=== PATIENT | male | born 1940 | race Caucasian/White ===

== ENCOUNTER → 2017-11-23 | Outpatient (CLI) | payer OTHER | LOC: M CARPUL 09:29 | DX: I51.7 Cardiomegaly (principal); R94.31 Abnormal electrocardiogram [ECG] [EKG] | CPT/HCPCS: 93306 ==

== ENCOUNTER 2020-05-15 16:17 | Emergency (ER) | payer OTHER ==
[~2020-05-15] VITALS: Ht 167.6 cm; Wt 100.5 kg
[2020-05-15] MEDS ORDERED: LANTINJ4 SC (16:36)
[2020-05-15] MEDS ORDERED: OMEP40CA97 PO (16:36)
[2020-05-15] MEDS ORDERED: CARV25TA PO (16:36)
[2020-05-15] MEDS ORDERED: TRUL0.5I SC (16:36)
[2020-05-15] MEDS ORDERED: INSU100V3 SQ (16:36)
[2020-05-15] MEDS ORDERED: ASPI81CH33 PO (16:36)
[2020-05-15] MEDS ORDERED: ATOR80TA59 PO (16:36)
[2020-05-15] MEDS ORDERED: METF-877 PO (16:36)
[2020-05-15] MEDS ORDERED: LIDOCAINE 4% CREAM 5GM (LMX4) TOP ONE (18:00)
--- NOTE | 2020-05-15 18:31 | REPVR ---
PROCEDURE INFORMATION: Exam: XR Left Hip with Pelvis when Performed Exam date and time: 05/15/2020 5:54 PM Age: 79 years old Clinical indication: Hip pain; Left hip; Additional info: Hurts to wb left leg TECHNIQUE: Imaging protocol: XR Left hip with pelvis when performed. Views: 2 or 3 views. COMPARISON: No relevant prior studies available. FINDINGS: Bones/joints: Bones are aligned normally. No acute proximal femur or acetabular fracture. Questionable left parasymphyseal obturator ring deformity No concerning bone lesion. No evidence of femoral head osteonecrosis. Hip joint space is well-maintained for age. Imaged portion of the SI joint is unremarkable. Soft tissues: No focal soft tissue abnormality. Vasculature: Vascular calcifications are noted. IMPRESSION: Questionable left parasymphyseal obturator ring fracture, nondisplaced. No other concerning abnormality to explain clinical symptoms. Electronically signed by: Edis Johnson On 05/15/2020 18:31:21 PM
--- NOTE | 2020-05-15 18:32 | REPVR ---
PROCEDURE INFORMATION: Exam: XR Left Tibia and Fibula Exam date and time: 05/15/2020 5:54 PM Age: 79 years old Clinical indication: Pain; Lower leg; Left; Additional info: Hurts to wb left leg TECHNIQUE: Imaging protocol: XR Left tibia and fibula. Views: 2 views. COMPARISON: No relevant prior studies available. FINDINGS: Bones/joints: Bony structures are aligned normally and demonstrate normal trabecular detail. No fracture or stress fracture. No concerning osseous lesion. Lag screw fixation of a prior distal fibular deformity, healed with no complication Mild ankle joint space narrowing and subchondral cystic change within the medial talus. Soft tissues: No focal soft tissue swelling or effacement of subcutaneous soft tissue planes. IMPRESSION: 1. Asymmetric medial ankle joint degenerative osteoarthrosis 2. No evidence of stress fracture Electronically signed by: Edis Johnson On 05/15/2020 18:32:25 PM
--- NOTE | 2020-05-15 18:33 | REPVR ---
PROCEDURE INFORMATION: Exam: US Duplex Left Lower Extremity Veins, Limited Exam date and time: 05/15/2020 6:20 PM Age: 79 years old Clinical indication: Pain; Leg, lower; Left; Additional info: Left calf pain, hurts to wb TECHNIQUE: Imaging protocol: Real-time Duplex ultrasound of the Left Lower Extremity with 2-D marin scale, color Doppler flow and spectral waveform analysis with image documentation. Limited exam focused on the left lower extremity veins. COMPARISON: No relevant prior studies available. FINDINGS: Left deep veins: Common femoral, femoral, proximal profunda femoral and popliteal veins are patent without thrombus. Normal Doppler waveforms. Normal compressibility and/or augmentation response. Left superficial veins: Saphenofemoral junction is patent without thrombus. Soft tissues: Unremarkable. IMPRESSION: No evidence of deep vein thrombosis. Electronically signed by: Edis Johnson On 05/15/2020 18:33:04 PM
[2020-05-15] MEDS ORDERED: ROLLMIS8 XX ×2 (19:34→19:35)
[2020-05-15 19:39] VITALS: BP 138/60
== END 2020-05-15 19:49 | disposition home or self-care (01) ==
LOC: M ED 16:17
DX: S72.002A Fracture of unspecified part of neck of left femur, initial encounter for closed fracture (principal); J44.9 Chronic obstructive pulmonary disease, unspecified; M19.072 Primary osteoarthritis, left ankle and foot; N18.3 Chronic kidney disease, stage 3 (moderate); I10 Essential (primary) hypertension; E11.9 Type 2 diabetes mellitus without complications; E78.5 Hyperlipidemia, unspecified; Z79.4 Long term (current) use of insulin; Z79.82 Long term (current) use of aspirin; Z79.899 Other long term (current) drug therapy; Z87.891 Personal history of nicotine dependence; Y92.9 Unspecified place or not applicable; Y93.9 Activity, unspecified; Y99.9 Unspecified external cause status

== ENCOUNTER 2020-11-18 11:59 | Emergency (ER) | payer OTHER ==
[~2020-11-18] VITALS: Ht 76.2 cm; Wt 104.1 kg
[~2020-11-18 11:59] MED LIST: ASPI81CH33 PO; ATOR80TA59 PO; CARV25TA PO; INSU100V3 SQ; LANTINJ4 SC; METF-877 PO; OMEP40CA97 PO; ROLLMIS8 XX; TRUL0.5I SC
--- NOTE | 2020-11-18 13:19 | REP ---
INDICATION: trauma COMPARISON: None. TECHNIQUE: Axial noncontrast images from the skull base to the thoracic inlet with coronal reformations. This CT examination was performed using the following dose reduction techniques: Automated exposure control, adjustment of mA and/or kv according to the patient's size, and use of iterative reconstruction technique. FINDINGS: Age-related atrophy and microvascular ischemic changes with periventricular leukomalacia and small chronic lacunar infarcts are appreciated. The ventricles and sulci are symmetric. Bauman-white differentiation is maintained. There is no evidence for acute intracranial hemorrhage, mass/mass effect, pathology or infarction. No extra-axial fluid collection. Calvarium is intact. Paranasal sinuses and mastoid air cells are clear. IMPRESSION: Age related atrophy and microvascular ischemic changes. No acute intracranial hemorrhage, infarction, or mass/mass effect. <Electronically signed by Darci Brambila > 11/18/20 [id number]
--- NOTE | 2020-11-18 13:20 | REP ---
INDICATION: trauma COMPARISON: None. TECHNIQUE: Axial noncontrast images from the skull base to the thoracic inlet with coronal and sagittal re-formations This CT examination was performed using the following dose reduction techniques: Automated exposure control, adjustment of mA and/or kv according to the patient's size, and use of iterative reconstruction technique. FINDINGS: Alignment and lordosis maintained. Early advanced multilevel degenerative changes include endplate sclerosis, disc space narrowing, osteophytosis and facet hypertrophy. No acute fracture/compression injury or subluxation. Spinal canal is patent. Paravertebral soft tissues are age-appropriate. IMPRESSION: Advanced multilevel degenerative spondylosis. No evidence for acute pathology or trauma/injury. <Electronically signed by Darci Brambila > 11/18/20 [id number]
[2020-11-18 13:24] LABS: BASO % 0.9 % (0.0-1.0); EOS # 0.1 10^3/uL (0.0-0.5); EOS % 2.3 % (0.0-3.0); HEMATOCRIT 41.5 % (42.0-52.0); HEMOGLOBIN 13.1 g/dl (13.5-17.5); LYMPH # 1.3 10^3/uL (1.5-5.0); LYMPH % 27.9 % (24.0-44.0); MEAN CORPUSCULAR HEMOGLOBIN 29.5 pg (27.0-33.0); MEAN CORPUSCULAR HGB CONC 31.6 g/dl (32.0-36.5); MEAN CORPUSCULAR VOLUME 93.5 fl (80.0-96.0); MONO # 0.6 10^3/uL (0.0-0.8); MONO % 11.9 % (2.0-8.0); NEUTROPHILS # 2.7 10^3/uL (1.5-8.5); NEUTROPHILS % 56.6 % (36.0-66.0); PLATELET COUNT, AUTOMATED 197 10^3/uL (150-450); RED BLOOD COUNT 4.44 10^6/uL (4.30-6.10); WHITE BLOOD COUNT 4.7 10^3/uL (4.0-10.0)
[2020-11-18 13:34] LABS: INR 1.01; PROTHROMBIN TIME 13.5 SECONDS (12.5-14.3)
[2020-11-18 13:35] LABS: PARTIAL THROMBOPLASTIN TIME 28.6 SECONDS (24.2-38.5)
[2020-11-18 14:02] LABS: ALBUMIN 2.8 GM/DL (3.2-5.2); ALT/SGPT 64 U/L (12-78); BILIRUBIN,DIRECT 0.2 MG/DL (0.0-0.2); BILIRUBIN,TOTAL 0.5 MG/DL (0.2-1.0); BLOOD UREA NITROGEN 29 MG/DL (7-18); CALCIUM LEVEL 9.4 MG/DL (8.8-10.2); CARBON DIOXIDE LEVEL 28 MEQ/L (21-32); CHLORIDE LEVEL 103 MEQ/L (98-107); CK-MB VALUE MASS 1.8 NG/ML (<3.6); CPK CREATINE PHOSPHOKINASE 29 U/L (39-308); CREATININE FOR GFR 1.58 MG/DL (0.70-1.30); FREE T4 1.06 NG/DL (0.76-1.46); GLOMERULAR FILTRATION RATE 45.4 (>42); GLUCOSE, FASTING 296 MG/DL (70-100); MB/CK RELATIVE INDEX 6.21 (< OR =4); POTASSIUM SERUM 4.6 MEQ/L (3.5-5.1); SODIUM LEVEL 136 MEQ/L (136-145); TROPONIN I < 0.02 NG/ML (< 0.10)
--- NOTE | 2020-11-18 15:00 | REP ---
INDICATION: trauma COMPARISON: 11/18/2013 TECHNIQUE: Portable AP view of the chest FINDINGS: The mediastinum and cardiac silhouette are stable and within normal limits for portable technique. The lung phelan are clear without acute consolidation, effusion, or pneumothorax. Skeletal structures are intact. IMPRESSION: No acute cardiopulmonary process appreciated. <Electronically signed by Darci Brambila > 11/18/20 [id number]
--- NOTE | 2020-11-18 15:02 | REP ---
INDICATION: trauma COMPARISON: None. TECHNIQUE: AP and lateral views of the left tibia/fibula. FINDINGS: Diffuse age-related changes are appreciated along with evidence for prior distal fibular fracture/fixation. No obvious acute fracture or dislocation. IMPRESSION: . No acute fracture or dislocation. <Electronically signed by Darci Brambila > 11/18/20 [id number]
--- NOTE | 2020-11-18 15:05 | REP ---
INDICATION: trauma COMPARISON: None. TECHNIQUE: Frontal view of the pelvis with neutral and frog lateral views of the left hip. FINDINGS: Diffuse age-related degenerative changes through the pelvis and hips noted. Peripheral vascular disease noted. There is no evidence for acute pelvic or left hip fracture. No subcutaneous emphysema or foreign body. IMPRESSION: Degenerative changes to the pelvis and hips (left greater than right). No evidence for acute fracture. INDICATION: trauma COMPARISON: None. TECHNIQUE: AP, lateral, bilateral oblique views of the left foot FINDINGS: Age-related osteopenia and generalized arthritic changes are appreciated. No obvious acute fracture or dislocation identified. Evidence for prior orthopedic fixation involving the distal fibular shaft noted. No subcutaneous emphysema or foreign body. IMPRESSION: Age-related osteopenia and generalized arthritic degenerative changes. No acute fracture or dislocation. <Electronically signed by Darci Brambila > 11/18/20 [id number]
[2020-11-18 16:15] VITALS: BP 182/75
--- NOTE | 2020-11-18 19:39 | ECGEPIP ---
[facility] - ED Test Date: 2020-11-18 Pat Name: AARON BERGER Department: Room: - Gender: Male [employer]ist: CED : 1940 Requested By: ALVIN Campbell Order Number: [id number] Reading MD: Efrain Soni Measurements Intervals [place] Rate: 84 P: 66 NV: 152 QRS: 47 QRSD: 82 T: 60 QT: 382 QTc: 451 Interpretive Statements Normal sinus rhythm Nonspecific ST and T wave abnormality Delayed R wave progression No prior ECG for comparison Electronically Signed on 11-18-2020 19:39:50 EST by Efrain Soni
== END 2020-11-18 16:15 | disposition home or self-care (01) ==
LOC: EDBD 11:59 → M ED 11:59
DX: S79.912A Unspecified injury of left hip, initial encounter (principal); W00.0XXA Fall on same level due to ice and snow, initial encounter; Y92.89 Other specified places as the place of occurrence of the external cause; E11.9 Type 2 diabetes mellitus without complications; J44.9 Chronic obstructive pulmonary disease, unspecified; N18.30 Chronic kidney disease, stage 3 unspecified; D64.9 Anemia, unspecified; G62.9 Polyneuropathy, unspecified; Z79.899 Other long term (current) drug therapy; Z79.82 Long term (current) use of aspirin; Z79.4 Long term (current) use of insulin

== ENCOUNTER 2021-09-11 15:32 | Emergency (ER) | payer OTHER ==
[~2021-09-11] VITALS: Ht 167.6 cm; Wt 100.0 kg
[~2021-09-11 15:32] MED LIST changes: +OMEP40CA4 PO; -OMEP40CA97 PO
[2021-09-11 21:26] LABS: BASO % 0.7 % (0.0-1.0); EOS # 0.2 10^3/uL (0.0-0.5); EOS % 3.9 % (0.0-3.0); HEMATOCRIT 39.7 % (42.0-52.0); HEMOGLOBIN 12.4 g/dl (13.5-17.5); LYMPH % 35.6 % (24.0-44.0); MEAN CORPUSCULAR HEMOGLOBIN 30.1 pg (27.0-33.0); MEAN CORPUSCULAR HGB CONC 31.2 g/dl (32.0-36.5); MEAN CORPUSCULAR VOLUME 96.4 fl (80.0-96.0); MONO # 0.7 10^3/uL (0.0-0.8); MONO % 12.1 % (2.0-8.0); NEUTROPHILS # 2.7 10^3/uL (1.5-8.5); NEUTROPHILS % 47.5 % (36.0-66.0); PLATELET COUNT, AUTOMATED 169 10^3/uL (150-450); RED BLOOD COUNT 4.12 10^6/uL (4.30-6.10); WHITE BLOOD COUNT 5.7 10^3/uL (4.0-10.0)
--- NOTE | 2021-09-11 21:32 | REPVR ---
PROCEDURE INFORMATION: Exam: US Duplex Right Lower Extremity Veins, Limited Exam date and time: 09/11/2021 9:17 PM Age: 81 years old Clinical indication: Edema, localized; Lower extremity, right; Additional info: Rle edema TECHNIQUE: Imaging protocol: Real-time Duplex ultrasound of the Right Lower Extremity with 2-D marin scale, color Doppler flow and spectral waveform analysis with image documentation. Limited exam was focused on the right lower extremity veins. COMPARISON: CR Tibia, Fibula lower leg 11/18/2020 2:26 PM FINDINGS: Right deep veins: Unremarkable. The common femoral, femoral, proximal profunda femoral and popliteal veins are patent without thrombus. Normal Doppler waveforms. Normal compressibility and/or augmentation response. Right superficial veins: Unremarkable. Saphenofemoral junction is patent without thrombus. Soft tissues: Soft tissue swelling IMPRESSION: No evidence of deep vein thrombosis. Electronically signed by: Avtar Ramírez On 09/11/2021 21:32:20 PM
[2021-09-11 21:46] LABS: ERYTHROCYTE SEDIMENTATION RATE 61 mm/hr (0-20)
[2021-09-11 22:00] LABS: ALBUMIN 3.2 GM/DL (3.2-5.2); BILIRUBIN,DIRECT 0.2 MG/DL (0.0-0.2); BILIRUBIN,TOTAL 0.5 MG/DL (0.2-1.0); C REACTIVE PROTEIN QUANTITATIV 0.47 MG/DL (0.00-0.30); CALCIUM LEVEL 9.2 MG/DL (8.8-10.2); CREATININE FOR GFR 1.69 MG/DL (0.70-1.30); GLOMERULAR FILTRATION RATE 41.9 (>42); POTASSIUM SERUM 4.6 MEQ/L (3.5-5.1); TOTAL PROTEIN 7.2 GM/DL (6.4-8.2)
[2021-09-11] MEDS ORDERED: TINA1CRE TOP (22:14)
[2021-09-11 22:28] VITALS: BP 120/58
== END 2021-09-11 23:01 | disposition home or self-care (01) ==
LOC: M ED 15:32
DX: B35.3 Tinea pedis (principal); R60.0 Localized edema; J44.9 Chronic obstructive pulmonary disease, unspecified; K21.9 Gastro-esophageal reflux disease without esophagitis; N18.30 Chronic kidney disease, stage 3 unspecified; Z79.82 Long term (current) use of aspirin; Z79.4 Long term (current) use of insulin; Z79.899 Other long term (current) drug therapy

== ENCOUNTER 2022-02-19 12:20 | Inpatient (IN) | payer OTHER, MEDICARE ==
[~2022-02-19] VITALS: Ht 167.6 cm; Wt 91.3 kg
[~2022-02-19 12:20] MED LIST changes: +TINA1CRE TOP
[2022-02-19 14:00] LABS: BASO % 0.5 % (0.0-1.0); EOS # 0.5 10^3/uL (0.0-0.5); EOS % 8.2 % (0.0-3.0); HEMATOCRIT 35.1 % (42.0-52.0); HEMOGLOBIN 11.1 g/dl (13.5-17.5); LYMPH # 1.5 10^3/uL (1.5-5.0); LYMPH % 24.7 % (24.0-44.0); MEAN CORPUSCULAR HEMOGLOBIN 29.5 pg (27.0-33.0); MEAN CORPUSCULAR HGB CONC 31.6 g/dl (32.0-36.5); MEAN CORPUSCULAR VOLUME 93.4 fl (80.0-96.0); MONO # 0.7 10^3/uL (0.0-0.8); MONO % 12.4 % (2.0-8.0); NEUTROPHILS # 3.2 10^3/uL (1.5-8.5); NEUTROPHILS % 53.9 % (36.0-66.0); PLATELET COUNT, AUTOMATED 196 10^3/uL (150-450); RED BLOOD COUNT 3.76 10^6/uL (4.30-6.10); WHITE BLOOD COUNT 5.9 10^3/uL (4.0-10.0)
[2022-02-19] MEDS ORDERED: diphenhydrAMINE 50MG/ML VIAL (J1200) IV ONE (14:00)
[2022-02-19 14:32] LABS: ALBUMIN 2.2 GM/DL (3.2-5.2); BILIRUBIN,DIRECT 0.3 MG/DL (0.0-0.2); BILIRUBIN,TOTAL 0.5 MG/DL (0.2-1.0); C REACTIVE PROTEIN QUANTITATIV 3.85 MG/DL (0.00-0.30); CALCIUM LEVEL 9.1 MG/DL (8.8-10.2); CREATININE FOR GFR 1.68 MG/DL (0.70-1.30); GLOMERULAR FILTRATION RATE 42.2 (>42); TOTAL PROTEIN 6.3 GM/DL (6.4-8.2)
[2022-02-19 14:54] LABS: ERYTHROCYTE SEDIMENTATION RATE 87 mm/hr (0-20)
[2022-02-19] MEDS ORDERED: VANCOMYCIN HCL 1,500 MG in IV FLUID PLACE HOLDER 1 EA IV ONE (14:55)
[2022-02-19] MEDS ORDERED: VANCOMYCIN HCL 750 MG, VIAL MATE ADAPTER 1 EACH in NS 250 ML IV ONE ×6 (15:05)
[2022-02-19 15:10] LABS: INR 1.07; PROTHROMBIN TIME 14.3 SECONDS (12.7-14.5)
[2022-02-19 15:11] LABS: PARTIAL THROMBOPLASTIN TIME 34.5 SECONDS (25.9-37.0)
[2022-02-19] MEDS: NS 1,000 ML IV SCH (15:19)
[2022-02-19 15:45] LABS: D-DIMER QUANT > 4000 ng/ml (<500)
[2022-02-19 15:53] LABS: RSV AMPLIFICATION NEGATIVE (NEGATIVE)
[2022-02-19] MEDS ORDERED: ISOVUE-370 76% 100ML VIAL As Ordered ONE (16:42)
[2022-02-19] MEDS ORDERED: HOME MED LIST COMPLETE! XX SCH ×2 (17:10→18:55)
[2022-02-19] MEDS ORDERED: MAALOX 30 ML SUSP *UDC PO PRN (17:20)
[2022-02-19] MEDS ORDERED: VANCOMYCIN HCL 1,000 MG, VIAL MATE ADAPTER 1 EACH in NS 250 ML IV SCH (18:50)
[2022-02-19] MEDS ORDERED: GLUCOSE 4GM CHEW TABLET PO PRN (18:50)
[2022-02-19] MEDS ORDERED: DEXTROSE 50% 50 ML SYRINGE IV PRN (18:50)
[2022-02-19] MEDS ORDERED: GLUCAGON INJ 1MG VIAL SC PRN (18:50)
[2022-02-19 20:00] VITALS: BP 118/78
[2022-02-19] MEDS: cefTRIAXone SOD 1 GM in D5W MINI-BAG PLUS 50 ML IV SCH (20:14)
[2022-02-19] MEDS: INSULIN LISPRO (NovoLOG) PER UNIT SC SCH (22:46)
[2022-02-19] MEDS: HEPARIN SOD (PORCINE) 5000UNITS/ML 1ML VIAL/SYRINGE SC SCH (23:00)
[2022-02-19] MEDS: LEVEMIR (INSULIN DETEMIR) 1 UNITS/0.01ML SC SCH (23:01)
[2022-02-19] MEDS: CARVedilol 12.5 MG TAB PO SCH (23:05)
[2022-02-20] MEDS ORDERED: VANCOMYCIN HCL 750 MG, VIAL MATE ADAPTER 1 EACH in NS 250 ML IV SCH ×3
[2022-02-20] MEDS ORDERED: VANCOMYCIN HCL 500 MG in D5W MINI-BAG PLUS 100 ML IV SCH (01:00)
[2022-02-20 05:54] LABS: BASO % 0.5 % (0.0-1.0); EOS # 0.6 10^3/uL (0.0-0.5); EOS % 7.9 % (0.0-3.0); HEMATOCRIT 34.9 % (42.0-52.0); HEMOGLOBIN 11.3 g/dl (13.5-17.5); LYMPH # 1.7 10^3/uL (1.5-5.0); MEAN CORPUSCULAR HEMOGLOBIN 30.2 pg (27.0-33.0); MEAN CORPUSCULAR HGB CONC 32.4 g/dl (32.0-36.5); MEAN CORPUSCULAR VOLUME 93.3 fl (80.0-96.0); MONO # 0.9 10^3/uL (0.0-0.8); MONO % 11.8 % (2.0-8.0); NEUTROPHILS # 4.6 10^3/uL (1.5-8.5); NEUTROPHILS % 58.4 % (36.0-66.0); PLATELET COUNT, AUTOMATED 217 10^3/uL (150-450); RED BLOOD COUNT 3.74 10^6/uL (4.30-6.10); WHITE BLOOD COUNT 7.9 10^3/uL (4.0-10.0)
[2022-02-20 06:00] VITALS: BP 161/67
[2022-02-20 06:28] LABS: ALBUMIN 2.1 GM/DL (3.2-5.2); BILIRUBIN,TOTAL 0.3 MG/DL (0.2-1.0); C REACTIVE PROTEIN QUANTITATIV 3.8 MG/DL (0.00-0.30); CALCIUM LEVEL 8.5 MG/DL (8.8-10.2); CREATININE FOR GFR 1.58 MG/DL (0.70-1.30); GLOMERULAR FILTRATION RATE 45.3 (>42); MAGNESIUM LEVEL 2.1 MG/DL (1.8-2.4); TOTAL PROTEIN 7.1 GM/DL (6.4-8.2)
[2022-02-20] MEDS: NS 1,000 ML IV SCH (06:53)
[2022-02-20] MEDS: HEPARIN SOD (PORCINE) 5000UNITS/ML 1ML VIAL/SYRINGE SC SCH ×3 (06:55→22:08)
[2022-02-20 07:08] LABS: ERYTHROCYTE SEDIMENTATION RATE 94 mm/hr (0-20)
[2022-02-20] MEDS: INSULIN LISPRO (NovoLOG) PER UNIT SC SCH ×4 (07:14→21:00)
[2022-02-20] MEDS ORDERED: NS 1,000 ML IV SCH (07:30)
[2022-02-20] MEDS: ASPIRIN 81 MG CHEW TABLET PO SCH (07:56)
[2022-02-20] MEDS: OMEPRAZOLE 20MG CAP PO SCH (07:56)
[2022-02-20] MEDS: CARVedilol 12.5 MG TAB PO SCH ×2 (07:56→22:00)
[2022-02-20] MEDS: ATORVASTATIN 20 MG TAB PO SCH (07:56)
[2022-02-20] MEDS: amLODIPine 5 MG TAB PO SCH (08:26)
[2022-02-20] MEDS: CHLORTHALIDONE 12.5MG PER 1/2 TABLET PO SCH (08:55)
[2022-02-20 09:25] LABS: CK-MB VALUE MASS 1.5 NG/ML (<3.6); MB/CK RELATIVE INDEX 2.78 (< OR =4)
[2022-02-20] MEDS ORDERED: ISOVUE-370 76% 100ML VIAL As Ordered ONE (09:27)
[2022-02-20 11:45] VITALS: BP 152/76
[2022-02-20 12:02] LABS: CHOLESTEROL RISK RATIO 2.733 (<5)
[2022-02-20 12:56] LABS: FREE T4 1.13 NG/DL (0.76-1.46); THYROID STIMULATING HORMONE 0.974 uIU/ML (0.358-3.740)
[2022-02-20] MEDS: VANCOMYCIN HCL 1,000 MG, VIAL MATE ADAPTER 1 EACH in NS 250 ML IV SCH (14:48)
[2022-02-20] MEDS: D5W/0.45% SODIUM CHLORIDE 1,000 ML IV SCH (14:50)
[2022-02-20 20:00] VITALS: BP 187/93
[2022-02-20 22:00] VITALS: BP 182/70
[2022-02-20] MEDS: cefTRIAXone SOD 1 GM in D5W MINI-BAG PLUS 50 ML IV SCH (22:08)
[2022-02-20] MEDS ORDERED: amLODIPine 5 MG TAB PO ONE (22:25)
[2022-02-21] VITALS (9 sets, daily range): BP systolic 138–200; BP diastolic 68–80
[2022-02-21] MEDS ORDERED: hydrALAZINE 20MG/ML 1ML VIAL (J0360 PER 20MG) IV ONE (00:55)
[2022-02-21] MEDS ORDERED: CHLORTHALIDONE 12.5MG PER 1/2 TABLET PO ONE (02:40)
[2022-02-21] MEDS: ACETAMINOPHEN TAB 650MG DOSE (2X325MG) PO PRN ×2 (02:57→12:01)
[2022-02-21] MEDS ORDERED: cloNIDine 0.1MG TABLET PO ONE (04:55)
[2022-02-21] MEDS: HEPARIN SOD (PORCINE) 5000UNITS/ML 1ML VIAL/SYRINGE SC SCH ×3 (06:04→20:28)
[2022-02-21 07:39] LABS: BASO % 0.5 % (0.0-1.0); EOS # 0.5 10^3/uL (0.0-0.5); EOS % 8.7 % (0.0-3.0); HEMATOCRIT 31.8 % (42.0-52.0); HEMOGLOBIN 10.4 g/dl (13.5-17.5); LYMPH # 1.6 10^3/uL (1.5-5.0); LYMPH % 27.4 % (24.0-44.0); MEAN CORPUSCULAR HEMOGLOBIN 30.3 pg (27.0-33.0); MEAN CORPUSCULAR HGB CONC 32.7 g/dl (32.0-36.5); MEAN CORPUSCULAR VOLUME 92.7 fl (80.0-96.0); MONO # 0.8 10^3/uL (0.0-0.8); MONO % 13.9 % (2.0-8.0); NEUTROPHILS # 2.9 10^3/uL (1.5-8.5); NEUTROPHILS % 49.3 % (36.0-66.0); PLATELET COUNT, AUTOMATED 185 10^3/uL (150-450); RED BLOOD COUNT 3.43 10^6/uL (4.30-6.10); WHITE BLOOD COUNT 5.9 10^3/uL (4.0-10.0)
[2022-02-21 08:04] LABS: ALBUMIN 1.8 GM/DL (3.2-5.2); BILIRUBIN,TOTAL 0.2 MG/DL (0.2-1.0); C REACTIVE PROTEIN QUANTITATIV 2.67 MG/DL (0.00-0.30); CALCIUM LEVEL 8.2 MG/DL (8.8-10.2); CREATININE FOR GFR 1.49 MG/DL (0.70-1.30); GLOMERULAR FILTRATION RATE 48.4 (>42); MAGNESIUM LEVEL 1.9 MG/DL (1.8-2.4); POTASSIUM SERUM 4.1 MEQ/L (3.5-5.1)
[2022-02-21 08:09] LABS: ERYTHROCYTE SEDIMENTATION RATE 77 mm/hr (0-20)
[2022-02-21] MEDS: D5W/0.45% SODIUM CHLORIDE 1,000 ML IV SCH (08:12)
[2022-02-21] MEDS: CHLORTHALIDONE 12.5MG PER 1/2 TABLET PO SCH (08:56)
[2022-02-21] MEDS: INSULIN LISPRO (NovoLOG) PER UNIT SC SCH ×4 (08:56→20:28)
[2022-02-21] MEDS: OMEPRAZOLE 20MG CAP PO SCH (08:57)
[2022-02-21] MEDS: ASPIRIN 81 MG CHEW TABLET PO SCH (08:57)
[2022-02-21] MEDS: ATORVASTATIN 20 MG TAB PO SCH (08:57)
[2022-02-21] MEDS: amLODIPine 5 MG TAB PO SCH (08:57)
[2022-02-21] MEDS: CARVedilol 12.5 MG TAB PO SCH ×2 (08:58→20:29)
[2022-02-21] MEDS: LEVEMIR (INSULIN DETEMIR) 1 UNITS/0.01ML SC SCH ×2 (09:07→20:29)
[2022-02-21] MEDS: VANCOMYCIN HCL 1,000 MG, VIAL MATE ADAPTER 1 EACH in NS 250 ML IV SCH (14:00)
[2022-02-22] VITALS (7 sets, daily range): BP systolic 134–186; BP diastolic 42–73
[2022-02-22] MEDS: D5W/0.45% SODIUM CHLORIDE 1,000 ML IV SCH ×2 (00:45→14:37)
[2022-02-22] MEDS: HEPARIN SOD (PORCINE) 5000UNITS/ML 1ML VIAL/SYRINGE SC SCH ×3 (05:34→20:40)
[2022-02-22 07:11] LABS: BASO # 0.1 10^3/uL (0.0-0.2); BASO % 0.8 % (0.0-1.0); EOS # 0.6 10^3/uL (0.0-0.5); EOS % 8.9 % (0.0-3.0); HEMATOCRIT 33.1 % (42.0-52.0); HEMOGLOBIN 10.6 g/dl (13.5-17.5); LYMPH # 1.5 10^3/uL (1.5-5.0); LYMPH % 22.7 % (24.0-44.0); MEAN CORPUSCULAR HEMOGLOBIN 29.4 pg (27.0-33.0); MEAN CORPUSCULAR VOLUME 91.9 fl (80.0-96.0); MONO # 0.9 10^3/uL (0.0-0.8); MONO % 12.8 % (2.0-8.0); NEUTROPHILS # 3.6 10^3/uL (1.5-8.5); NEUTROPHILS % 54.6 % (36.0-66.0); PLATELET COUNT, AUTOMATED 204 10^3/uL (150-450); WHITE BLOOD COUNT 6.7 10^3/uL (4.0-10.0)
[2022-02-22] MEDS: INSULIN LISPRO (NovoLOG) PER UNIT SC SCH ×4 (07:30→20:31)
[2022-02-22 07:33] LABS: ERYTHROCYTE SEDIMENTATION RATE 85 mm/hr (0-20)
[2022-02-22 07:40] LABS: ALBUMIN 1.9 GM/DL (3.2-5.2); BILIRUBIN,TOTAL 0.2 MG/DL (0.2-1.0); C REACTIVE PROTEIN QUANTITATIV 2.17 MG/DL (0.00-0.30); CALCIUM LEVEL 8.7 MG/DL (8.8-10.2); CREATININE FOR GFR 1.43 MG/DL (0.70-1.30); GLOMERULAR FILTRATION RATE 50.8 (>42); MAGNESIUM LEVEL 2.2 MG/DL (1.8-2.4); POTASSIUM SERUM 3.9 MEQ/L (3.5-5.1); TOTAL PROTEIN 5.8 GM/DL (6.4-8.2)
[2022-02-22] MEDS: ATORVASTATIN 20 MG TAB PO SCH (09:07)
[2022-02-22] MEDS: OMEPRAZOLE 20MG CAP PO SCH (09:08)
[2022-02-22] MEDS: CHLORTHALIDONE 12.5MG PER 1/2 TABLET PO SCH (09:08)
[2022-02-22] MEDS: CARVedilol 12.5 MG TAB PO SCH ×2 (09:08→20:41)
[2022-02-22] MEDS: ASPIRIN 81 MG CHEW TABLET PO SCH (09:08)
[2022-02-22] MEDS: LEVEMIR (INSULIN DETEMIR) 1 UNITS/0.01ML SC SCH ×2 (09:09→20:40)
[2022-02-22] MEDS: amLODIPine 5 MG TAB PO SCH (09:09)
[2022-02-22] MEDS: ceFAZolin SOD 2 GM in IV 1 EA IV SCH ×2 (13:58→20:40)
[2022-02-22] MEDS ORDERED: hydrALAZINE 20MG/ML 1ML VIAL (J0360 PER 20MG) IV ONE (23:25)
[2022-02-23] VITALS (8 sets, daily range): BP systolic 130–175; BP diastolic 57–88
[2022-02-23] MEDS: HEPARIN SOD (PORCINE) 5000UNITS/ML 1ML VIAL/SYRINGE SC SCH ×3 (06:08→22:31)
[2022-02-23] MEDS: ceFAZolin SOD 2 GM in IV 1 EA IV SCH ×3 (06:09→22:29)
[2022-02-23 06:12] LABS: BASO % 0.6 % (0.0-1.0); EOS # 0.5 10^3/uL (0.0-0.5); EOS % 7.8 % (0.0-3.0); HEMOGLOBIN 11.2 g/dl (13.5-17.5); LYMPH # 1.8 10^3/uL (1.5-5.0); LYMPH % 28.1 % (24.0-44.0); MEAN CORPUSCULAR HEMOGLOBIN 29.5 pg (27.0-33.0); MEAN CORPUSCULAR VOLUME 92.1 fl (80.0-96.0); MONO # 0.8 10^3/uL (0.0-0.8); MONO % 12.8 % (2.0-8.0); NEUTROPHILS # 3.2 10^3/uL (1.5-8.5); NEUTROPHILS % 50.4 % (36.0-66.0); PLATELET COUNT, AUTOMATED 189 10^3/uL (150-450); WHITE BLOOD COUNT 6.3 10^3/uL (4.0-10.0)
[2022-02-23 06:39] LABS: ALBUMIN 1.9 GM/DL (3.2-5.2); BILIRUBIN,TOTAL 0.2 MG/DL (0.2-1.0); C REACTIVE PROTEIN QUANTITATIV 1.7 MG/DL (0.00-0.30); CREATININE FOR GFR 1.56 MG/DL (0.70-1.30); GLOMERULAR FILTRATION RATE 45.9 (>42); POTASSIUM SERUM 4.2 MEQ/L (3.5-5.1); TOTAL PROTEIN 6.9 GM/DL (6.4-8.2)
[2022-02-23 06:46] LABS: ERYTHROCYTE SEDIMENTATION RATE 86 mm/hr (0-20)
[2022-02-23] MEDS: D5W/0.45% SODIUM CHLORIDE 1,000 ML IV SCH (06:55)
[2022-02-23] MEDS: INSULIN LISPRO (NovoLOG) PER UNIT SC SCH ×4 (07:29→21:00)
[2022-02-23] MEDS: CHLORTHALIDONE 12.5MG PER 1/2 TABLET PO SCH (08:28)
[2022-02-23] MEDS: LEVEMIR (INSULIN DETEMIR) 1 UNITS/0.01ML SC SCH ×2 (08:28→21:00)
[2022-02-23] MEDS: amLODIPine 5 MG TAB PO SCH (08:28)
[2022-02-23] MEDS: ATORVASTATIN 20 MG TAB PO SCH (08:28)
[2022-02-23] MEDS: ASPIRIN 81 MG CHEW TABLET PO SCH (08:29)
[2022-02-23] MEDS: CARVedilol 12.5 MG TAB PO SCH ×2 (08:29→22:29)
[2022-02-23] MEDS: OMEPRAZOLE 20MG CAP PO SCH (08:29)
[2022-02-23] MEDS: LOSARTAN 50MG TABLET PO SCH (16:06)
[2022-02-23] MEDS: traMADol 50 MG TAB PO PRN (22:30)
[2022-02-24 05:40] LABS: BASO % 0.6 % (0.0-1.0); EOS # 0.5 10^3/uL (0.0-0.5); EOS % 7.9 % (0.0-3.0); HEMATOCRIT 36.3 % (42.0-52.0); HEMOGLOBIN 11.5 g/dl (13.5-17.5); LYMPH % 31.8 % (24.0-44.0); MEAN CORPUSCULAR HEMOGLOBIN 29.4 pg (27.0-33.0); MEAN CORPUSCULAR HGB CONC 31.7 g/dl (32.0-36.5); MEAN CORPUSCULAR VOLUME 92.8 fl (80.0-96.0); MONO # 0.9 10^3/uL (0.0-0.8); MONO % 14.4 % (2.0-8.0); NEUTROPHILS # 2.8 10^3/uL (1.5-8.5); NEUTROPHILS % 45.1 % (36.0-66.0); PLATELET COUNT, AUTOMATED 194 10^3/uL (150-450); RED BLOOD COUNT 3.91 10^6/uL (4.30-6.10); WHITE BLOOD COUNT 6.2 10^3/uL (4.0-10.0)
[2022-02-24] MEDS: ceFAZolin SOD 2 GM in IV 1 EA IV SCH ×3 (05:41→21:00)
[2022-02-24] MEDS: HEPARIN SOD (PORCINE) 5000UNITS/ML 1ML VIAL/SYRINGE SC SCH ×3 (05:42→22:00)
[2022-02-24 06:00] VITALS: BP 180/68
[2022-02-24 06:36] LABS: BILIRUBIN,TOTAL 0.2 MG/DL (0.2-1.0); CALCIUM LEVEL 8.9 MG/DL (8.8-10.2); CREATININE FOR GFR 1.6 MG/DL (0.70-1.30); GLOMERULAR FILTRATION RATE 44.6 (>42); MAGNESIUM LEVEL 2.2 MG/DL (1.8-2.4); POTASSIUM SERUM 4.3 MEQ/L (3.5-5.1); TOTAL PROTEIN 6.3 GM/DL (6.4-8.2)
[2022-02-24] MEDS ORDERED: hydrALAZINE 20MG/ML 1ML VIAL (J0360 PER 20MG) IV STA (07:14)
[2022-02-24] MEDS: INSULIN LISPRO (NovoLOG) PER UNIT SC SCH ×4 (07:30→21:00)
[2022-02-24 08:00] VITALS: BP 160/78
[2022-02-24] MEDS: ASPIRIN 81 MG CHEW TABLET PO SCH (08:05)
[2022-02-24] MEDS: CHLORTHALIDONE 12.5MG PER 1/2 TABLET PO SCH (08:05)
[2022-02-24] MEDS: ATORVASTATIN 20 MG TAB PO SCH (08:05)
[2022-02-24] MEDS: CARVedilol 12.5 MG TAB PO SCH ×2 (08:06→22:16)
[2022-02-24] MEDS: LOSARTAN 50MG TABLET PO SCH (08:06)
[2022-02-24] MEDS: OMEPRAZOLE 20MG CAP PO SCH (08:06)
[2022-02-24] MEDS: amLODIPine 5 MG TAB PO SCH (08:07)
[2022-02-24] MEDS: LEVEMIR (INSULIN DETEMIR) 1 UNITS/0.01ML SC SCH ×2 (08:08→22:17)
[2022-02-24 08:53] VITALS: BP 120/64
[2022-02-24 09:15] VITALS: BP 104/78
[2022-02-24 14:00] VITALS: BP 146/66
[2022-02-24 17:21] LABS: HEMATOCRIT 34.8 % (42.0-52.0); HEMOGLOBIN 11.2 g/dl (13.5-17.5)
[2022-02-24 22:05] VITALS: BP 154/60
[2022-02-25] MEDS: ceFAZolin SOD 2 GM in IV 1 EA IV SCH (04:07)
[2022-02-25] MEDS: HEPARIN SOD (PORCINE) 5000UNITS/ML 1ML VIAL/SYRINGE SC SCH (04:07)
[2022-02-25 05:15] VITALS: BP 168/59
[2022-02-25 06:02] LABS: BASO % 0.7 % (0.0-1.0); EOS # 0.5 10^3/uL (0.0-0.5); EOS % 9.3 % (0.0-3.0); HEMOGLOBIN 11.4 g/dl (13.5-17.5); LYMPH # 1.7 10^3/uL (1.5-5.0); LYMPH % 30.8 % (24.0-44.0); MEAN CORPUSCULAR HEMOGLOBIN 29.2 pg (27.0-33.0); MEAN CORPUSCULAR HGB CONC 31.7 g/dl (32.0-36.5); MEAN CORPUSCULAR VOLUME 92.3 fl (80.0-96.0); MONO # 0.7 10^3/uL (0.0-0.8); MONO % 13.2 % (2.0-8.0); NEUTROPHILS # 2.6 10^3/uL (1.5-8.5); NEUTROPHILS % 45.8 % (36.0-66.0); PLATELET COUNT, AUTOMATED 203 10^3/uL (150-450); WHITE BLOOD COUNT 5.6 10^3/uL (4.0-10.0)
[2022-02-25 06:34] LABS: BILIRUBIN,TOTAL 0.3 MG/DL (0.2-1.0); CALCIUM LEVEL 9.1 MG/DL (8.8-10.2); CREATININE FOR GFR 1.54 MG/DL (0.70-1.30); GLOMERULAR FILTRATION RATE 46.6 (>42); MAGNESIUM LEVEL 2.2 MG/DL (1.8-2.4); POTASSIUM SERUM 4.4 MEQ/L (3.5-5.1); TOTAL PROTEIN 6.1 GM/DL (6.4-8.2)
[2022-02-25] MEDS: INSULIN LISPRO (NovoLOG) PER UNIT SC SCH ×4 (07:30→21:00)
[2022-02-25 09:00] VITALS: BP 106/47
[2022-02-25] MEDS: OMEPRAZOLE 20MG CAP PO SCH (09:04)
[2022-02-25] MEDS: CHLORTHALIDONE 12.5MG PER 1/2 TABLET PO SCH (09:04)
[2022-02-25] MEDS: LOSARTAN 50MG TABLET PO SCH (09:04)
[2022-02-25] MEDS: ATORVASTATIN 20 MG TAB PO SCH (09:04)
[2022-02-25] MEDS: CARVedilol 12.5 MG TAB PO SCH ×2 (09:07→20:47)
[2022-02-25] MEDS: amLODIPine 5 MG TAB PO SCH (09:07)
[2022-02-25 14:40] VITALS: BP 123/60
[2022-02-25 14:49] VITALS: BP 123/60
[2022-02-25] MEDS: CEPHALEXIN 500 MG CAP PO SCH ×2 (16:10→20:39)
[2022-02-25 20:00] VITALS: BP 131/61
[2022-02-25] MEDS: DIMETHICONE 2% OINTMENT(VANICREAM) 70GM TUBE TOP SCH (21:57)
[2022-02-26 06:00] VITALS: BP 154/63
[2022-02-26 06:04] LABS: BASO % 0.6 % (0.0-1.0); EOS # 0.5 10^3/uL (0.0-0.5); EOS % 7.5 % (0.0-3.0); HEMOGLOBIN 11.7 g/dl (13.5-17.5); LYMPH # 1.7 10^3/uL (1.5-5.0); LYMPH % 27.4 % (24.0-44.0); MEAN CORPUSCULAR HEMOGLOBIN 29.3 pg (27.0-33.0); MEAN CORPUSCULAR HGB CONC 31.6 g/dl (32.0-36.5); MEAN CORPUSCULAR VOLUME 92.5 fl (80.0-96.0); MONO # 0.8 10^3/uL (0.0-0.8); MONO % 12.5 % (2.0-8.0); NEUTROPHILS # 3.2 10^3/uL (1.5-8.5); NEUTROPHILS % 51.8 % (36.0-66.0); PLATELET COUNT, AUTOMATED 195 10^3/uL (150-450); WHITE BLOOD COUNT 6.2 10^3/uL (4.0-10.0)
[2022-02-26 06:32] LABS: ALBUMIN 2.2 GM/DL (3.2-5.2); BILIRUBIN,TOTAL 0.3 MG/DL (0.2-1.0); CALCIUM LEVEL 9.2 MG/DL (8.8-10.2); CREATININE FOR GFR 1.48 MG/DL (0.70-1.30); GLOMERULAR FILTRATION RATE 48.8 (>42); MAGNESIUM LEVEL 2.4 MG/DL (1.8-2.4); POTASSIUM SERUM 4.6 MEQ/L (3.5-5.1); TOTAL PROTEIN 6.4 GM/DL (6.4-8.2)
[2022-02-26] MEDS: INSULIN LISPRO (NovoLOG) PER UNIT SC SCH ×4 (07:53→20:51)
[2022-02-26] MEDS: LEVEMIR (INSULIN DETEMIR) 1 UNITS/0.01ML SC SCH (07:53)
[2022-02-26] MEDS: CHLORTHALIDONE 12.5MG PER 1/2 TABLET PO SCH (07:54)
[2022-02-26] MEDS: OMEPRAZOLE 20MG CAP PO SCH (07:54)
[2022-02-26] MEDS: CEPHALEXIN 500 MG CAP PO SCH ×3 (07:54→20:56)
[2022-02-26] MEDS: ATORVASTATIN 20 MG TAB PO SCH (07:54)
[2022-02-26 07:57] VITALS: BP 151/58
[2022-02-26] MEDS: LOSARTAN 50MG TABLET PO SCH (07:57)
[2022-02-26] MEDS: CARVedilol 12.5 MG TAB PO SCH ×2 (07:58→20:56)
[2022-02-26] MEDS: amLODIPine 5 MG TAB PO SCH (07:59)
[2022-02-26] MEDS: DIMETHICONE 2% OINTMENT(VANICREAM) 70GM TUBE TOP SCH ×2 (07:59→20:58)
[2022-02-26 14:10] VITALS: BP 105/46
[2022-02-26 20:00] VITALS: BP 175/67
[2022-02-27 05:43] VITALS: BP 126/53
[2022-02-27 05:54] LABS: HEMATOCRIT 35.5 % (42.0-52.0); HEMOGLOBIN 11.3 g/dl (13.5-17.5); MEAN CORPUSCULAR HEMOGLOBIN 29.7 pg (27.0-33.0); MEAN CORPUSCULAR HGB CONC 31.8 g/dl (32.0-36.5); MEAN CORPUSCULAR VOLUME 93.2 fl (80.0-96.0); PLATELET COUNT, AUTOMATED 195 10^3/uL (150-450); RED BLOOD COUNT 3.81 10^6/uL (4.30-6.10); WHITE BLOOD COUNT 5.8 10^3/uL (4.0-10.0)
[2022-02-27 06:14] LABS: CALCIUM LEVEL 8.4 MG/DL (8.8-10.2); CREATININE FOR GFR 1.76 MG/DL (0.70-1.30); POTASSIUM SERUM 4.8 MEQ/L (3.5-5.1)
[2022-02-27] MEDS: ATORVASTATIN 20 MG TAB PO SCH (08:43)
[2022-02-27] MEDS: LOSARTAN 50MG TABLET PO SCH (08:43)
[2022-02-27] MEDS: CARVedilol 12.5 MG TAB PO SCH ×2 (08:44→23:25)
[2022-02-27] MEDS: CHLORTHALIDONE 12.5MG PER 1/2 TABLET PO SCH (08:44)
[2022-02-27] MEDS: CEPHALEXIN 500 MG CAP PO SCH ×3 (08:45→23:21)
[2022-02-27] MEDS: OMEPRAZOLE 20MG CAP PO SCH (08:45)
[2022-02-27] MEDS: amLODIPine 5 MG TAB PO SCH (08:45)
[2022-02-27] MEDS: INSULIN LISPRO (NovoLOG) PER UNIT SC SCH ×4 (08:46→21:00)
[2022-02-27] MEDS: LEVEMIR (INSULIN DETEMIR) 1 UNITS/0.01ML SC SCH (08:47)
[2022-02-27] MEDS: DIMETHICONE 2% OINTMENT(VANICREAM) 70GM TUBE TOP SCH ×2 (08:48→23:22)
[2022-02-27] MEDS: traMADol 50 MG TAB PO PRN (11:10)
[2022-02-27 14:02] VITALS: BP 102/49
[2022-02-27 22:00] VITALS: BP 118/40
[2022-02-28 05:55] LABS: HEMOGLOBIN 10.4 g/dl (13.5-17.5); MEAN CORPUSCULAR HEMOGLOBIN 29.8 pg (27.0-33.0); MEAN CORPUSCULAR HGB CONC 31.5 g/dl (32.0-36.5); MEAN CORPUSCULAR VOLUME 94.6 fl (80.0-96.0); PLATELET COUNT, AUTOMATED 179 10^3/uL (150-450); RED BLOOD COUNT 3.49 10^6/uL (4.30-6.10); WHITE BLOOD COUNT 5.8 10^3/uL (4.0-10.0)
[2022-02-28 06:00] VITALS: BP 153/58
[2022-02-28 06:20] LABS: ERYTHROCYTE SEDIMENTATION RATE 69 mm/hr (0-20)
[2022-02-28 06:23] LABS: C REACTIVE PROTEIN QUANTITATIV 0.62 MG/DL (0.00-0.30); CALCIUM LEVEL 8.7 MG/DL (8.8-10.2); CREATININE FOR GFR 1.9 MG/DL (0.70-1.30); GLOMERULAR FILTRATION RATE 36.6 (>42); POTASSIUM SERUM 4.9 MEQ/L (3.5-5.1)
[2022-02-28] MEDS: CEPHALEXIN 500 MG CAP PO SCH ×3 (08:57→20:06)
[2022-02-28] MEDS: OMEPRAZOLE 20MG CAP PO SCH (08:58)
[2022-02-28] MEDS: CARVedilol 12.5 MG TAB PO SCH ×2 (09:05→20:05)
[2022-02-28] MEDS: amLODIPine 5 MG TAB PO SCH (09:05)
[2022-02-28] MEDS: DIMETHICONE 2% OINTMENT(VANICREAM) 70GM TUBE TOP SCH ×2 (09:06→20:04)
[2022-02-28] MEDS: LOSARTAN 50MG TABLET PO SCH (09:06)
[2022-02-28] MEDS: CHLORTHALIDONE 12.5MG PER 1/2 TABLET PO SCH (09:06)
[2022-02-28] MEDS: ATORVASTATIN 20 MG TAB PO SCH (09:06)
[2022-02-28] MEDS: INSULIN LISPRO (NovoLOG) PER UNIT SC SCH ×4 (09:06→20:02)
[2022-02-28] MEDS: LEVEMIR (INSULIN DETEMIR) 1 UNITS/0.01ML SC SCH (09:07)
[2022-02-28 14:00] VITALS: BP 123/61
[2022-02-28] MEDS: traMADol 50 MG TAB PO PRN (17:12)
[2022-02-28 22:00] VITALS: BP 132/60
[2022-03-01 06:00] VITALS: BP 139/53
[2022-03-01 06:39] LABS: HEMATOCRIT 35.8 % (42.0-52.0); HEMOGLOBIN 11.2 g/dl (13.5-17.5); MEAN CORPUSCULAR HEMOGLOBIN 29.1 pg (27.0-33.0); MEAN CORPUSCULAR HGB CONC 31.3 g/dl (32.0-36.5); PLATELET COUNT, AUTOMATED 190 10^3/uL (150-450); RED BLOOD COUNT 3.85 10^6/uL (4.30-6.10); WHITE BLOOD COUNT 5.9 10^3/uL (4.0-10.0)
[2022-03-01 06:55] LABS: CALCIUM LEVEL 8.2 MG/DL (8.8-10.2); CREATININE FOR GFR 1.71 MG/DL (0.70-1.30); GLOMERULAR FILTRATION RATE 41.3 (>42); POTASSIUM SERUM 4.7 MEQ/L (3.5-5.1)
[2022-03-01] MEDS: LEVEMIR (INSULIN DETEMIR) 1 UNITS/0.01ML SC SCH (09:24)
[2022-03-01] MEDS: INSULIN LISPRO (NovoLOG) PER UNIT SC SCH ×4 (09:25→20:28)
[2022-03-01] MEDS: ATORVASTATIN 20 MG TAB PO SCH (09:25)
[2022-03-01] MEDS: LOSARTAN 50MG TABLET PO SCH (09:27)
[2022-03-01] MEDS: OMEPRAZOLE 20MG CAP PO SCH (09:28)
[2022-03-01] MEDS: CHLORTHALIDONE 12.5MG PER 1/2 TABLET PO SCH (09:28)
[2022-03-01] MEDS: CARVedilol 12.5 MG TAB PO SCH ×2 (09:28→20:28)
[2022-03-01] MEDS: amLODIPine 5 MG TAB PO SCH (09:29)
[2022-03-01] MEDS: DIMETHICONE 2% OINTMENT(VANICREAM) 70GM TUBE TOP SCH ×2 (09:29→20:27)
[2022-03-01] MEDS: CEPHALEXIN 500 MG CAP PO SCH ×3 (09:29→20:26)
[2022-03-02 06:00] VITALS: BP 137/50
[2022-03-02 07:31] LABS: HEMATOCRIT 35.4 % (42.0-52.0); HEMOGLOBIN 11.4 g/dl (13.5-17.5); MEAN CORPUSCULAR HEMOGLOBIN 30.3 pg (27.0-33.0); MEAN CORPUSCULAR HGB CONC 32.2 g/dl (32.0-36.5); MEAN CORPUSCULAR VOLUME 94.1 fl (80.0-96.0); PLATELET COUNT, AUTOMATED 197 10^3/uL (150-450); RED BLOOD COUNT 3.76 10^6/uL (4.30-6.10); WHITE BLOOD COUNT 5.9 10^3/uL (4.0-10.0)
[2022-03-02 07:54] LABS: CALCIUM LEVEL 8.6 MG/DL (8.8-10.2); CREATININE FOR GFR 1.65 MG/DL (0.70-1.30); GLOMERULAR FILTRATION RATE 43.1 (>42); POTASSIUM SERUM 4.9 MEQ/L (3.5-5.1)
[2022-03-02] MEDS: CEPHALEXIN 500 MG CAP PO SCH ×3 (08:49→20:54)
[2022-03-02] MEDS: LEVEMIR (INSULIN DETEMIR) 1 UNITS/0.01ML SC SCH (08:49)
[2022-03-02] MEDS: INSULIN LISPRO (NovoLOG) PER UNIT SC SCH ×4 (08:49→21:00)
[2022-03-02] MEDS: CHLORTHALIDONE 12.5MG PER 1/2 TABLET PO SCH (08:50)
[2022-03-02] MEDS: OMEPRAZOLE 20MG CAP PO SCH (08:50)
[2022-03-02] MEDS: LOSARTAN 50MG TABLET PO SCH (08:53)
[2022-03-02] MEDS: ATORVASTATIN 20 MG TAB PO SCH (08:53)
[2022-03-02] MEDS: CARVedilol 12.5 MG TAB PO SCH ×2 (08:53→20:53)
[2022-03-02] MEDS: amLODIPine 5 MG TAB PO SCH (08:54)
[2022-03-02] MEDS: DIMETHICONE 2% OINTMENT(VANICREAM) 70GM TUBE TOP SCH ×2 (08:54→20:56)
[2022-03-02] MEDS: traMADol 50 MG TAB PO PRN (12:14)
[2022-03-03 06:00] VITALS: BP 160/57
[2022-03-03 06:49] LABS: HEMOGLOBIN 11.3 g/dl (13.5-17.5); MEAN CORPUSCULAR HEMOGLOBIN 30.6 pg (27.0-33.0); MEAN CORPUSCULAR HGB CONC 32.3 g/dl (32.0-36.5); MEAN CORPUSCULAR VOLUME 94.9 fl (80.0-96.0); PLATELET COUNT, AUTOMATED 196 10^3/uL (150-450); RED BLOOD COUNT 3.69 10^6/uL (4.30-6.10); WHITE BLOOD COUNT 6.1 10^3/uL (4.0-10.0)
[2022-03-03 07:02] LABS: CALCIUM LEVEL 9.1 MG/DL (8.8-10.2); CREATININE FOR GFR 1.69 MG/DL (0.70-1.30); GLOMERULAR FILTRATION RATE 41.9 (>42)
[2022-03-03] MEDS: LEVEMIR (INSULIN DETEMIR) 1 UNITS/0.01ML SC SCH (08:19)
[2022-03-03] MEDS: INSULIN LISPRO (NovoLOG) PER UNIT SC SCH ×4 (08:20→21:00)
[2022-03-03] MEDS: OMEPRAZOLE 20MG CAP PO SCH (08:20)
[2022-03-03] MEDS: CARVedilol 12.5 MG TAB PO SCH ×2 (08:20→20:59)
[2022-03-03] MEDS: CHLORTHALIDONE 12.5MG PER 1/2 TABLET PO SCH (08:20)
[2022-03-03] MEDS: CEPHALEXIN 500 MG CAP PO SCH ×3 (08:21→21:00)
[2022-03-03] MEDS: DIMETHICONE 2% OINTMENT(VANICREAM) 70GM TUBE TOP SCH ×2 (08:21→21:00)
[2022-03-03] MEDS: amLODIPine 5 MG TAB PO SCH (08:21)
[2022-03-03] MEDS: ATORVASTATIN 20 MG TAB PO SCH (08:21)
[2022-03-03] MEDS: LOSARTAN 50MG TABLET PO SCH (08:21)
[2022-03-03] MEDS: traMADol 50 MG TAB PO PRN (08:26)
[2022-03-04 06:00] VITALS: BP 158/55
[2022-03-04] MEDS: INSULIN LISPRO (NovoLOG) PER UNIT SC SCH ×4 (09:39→20:12)
[2022-03-04] MEDS: amLODIPine 5 MG TAB PO SCH (09:40)
[2022-03-04] MEDS: LEVEMIR (INSULIN DETEMIR) 1 UNITS/0.01ML SC SCH (09:40)
[2022-03-04] MEDS: CHLORTHALIDONE 12.5MG PER 1/2 TABLET PO SCH (09:40)
[2022-03-04] MEDS: LOSARTAN 50MG TABLET PO SCH (09:41)
[2022-03-04] MEDS: CARVedilol 12.5 MG TAB PO SCH ×2 (09:41→20:11)
[2022-03-04] MEDS: ATORVASTATIN 20 MG TAB PO SCH (09:41)
[2022-03-04] MEDS: OMEPRAZOLE 20MG CAP PO SCH (09:41)
[2022-03-04] MEDS: CEPHALEXIN 500 MG CAP PO SCH ×3 (09:42→20:12)
[2022-03-04] MEDS: DIMETHICONE 2% OINTMENT(VANICREAM) 70GM TUBE TOP SCH ×2 (09:43→20:13)
[2022-03-04 20:11] VITALS: BP 158/67
[2022-03-05 06:00] VITALS: BP 155/57
[2022-03-05] MEDS: CHLORTHALIDONE 12.5MG PER 1/2 TABLET PO SCH (08:31)
[2022-03-05] MEDS: CEPHALEXIN 500 MG CAP PO SCH ×3 (08:31→21:02)
[2022-03-05] MEDS: CARVedilol 12.5 MG TAB PO SCH ×2 (08:32→21:02)
[2022-03-05] MEDS: OMEPRAZOLE 20MG CAP PO SCH (08:33)
[2022-03-05] MEDS: INSULIN LISPRO (NovoLOG) PER UNIT SC SCH ×4 (08:33→20:49)
[2022-03-05] MEDS: ATORVASTATIN 20 MG TAB PO SCH (08:33)
[2022-03-05] MEDS: amLODIPine 5 MG TAB PO SCH (08:33)
[2022-03-05] MEDS: LEVEMIR (INSULIN DETEMIR) 1 UNITS/0.01ML SC SCH (08:34)
[2022-03-05] MEDS: LOSARTAN 50MG TABLET PO SCH (08:34)
[2022-03-05] MEDS: DIMETHICONE 2% OINTMENT(VANICREAM) 70GM TUBE TOP SCH ×2 (08:35→21:02)
[2022-03-05 22:00] VITALS: BP 128/53
[2022-03-06 06:00] VITALS: BP 134/53
[2022-03-06] MEDS: LEVEMIR (INSULIN DETEMIR) 1 UNITS/0.01ML SC SCH (08:52)
[2022-03-06] MEDS: CEPHALEXIN 500 MG CAP PO SCH ×3 (08:53→20:44)
[2022-03-06] MEDS: INSULIN LISPRO (NovoLOG) PER UNIT SC SCH ×4 (08:53→20:38)
[2022-03-06] MEDS: amLODIPine 5 MG TAB PO SCH (08:57)
[2022-03-06] MEDS: CARVedilol 12.5 MG TAB PO SCH ×2 (08:58→20:45)
[2022-03-06] MEDS: LOSARTAN 50MG TABLET PO SCH (08:58)
[2022-03-06] MEDS: CHLORTHALIDONE 12.5MG PER 1/2 TABLET PO SCH (08:59)
[2022-03-06] MEDS: OMEPRAZOLE 20MG CAP PO SCH (08:59)
[2022-03-06] MEDS: ATORVASTATIN 20 MG TAB PO SCH (09:00)
[2022-03-06] MEDS: DIMETHICONE 2% OINTMENT(VANICREAM) 70GM TUBE TOP SCH ×2 (09:01→20:45)
[2022-03-06] MEDS ORDERED: traMADol 50 MG TAB PO ONE (09:40)
[2022-03-06] MEDS ORDERED: ACETAMINOPHEN 500 MG TAB PO ONE (09:40)
[2022-03-06] MEDS ORDERED: IPRATROPIUM 0.5MG/ALBUTEROL 2.5MG INH SOL UD 3ML (DUONEB) NEB PRN (09:40)
[2022-03-06 10:09] LABS: BASO # 0.1 10^3/uL (0.0-0.2); EOS # 0.4 10^3/uL (0.0-0.5); EOS % 6.5 % (0.0-3.0); HEMATOCRIT 36.1 % (42.0-52.0); HEMOGLOBIN 11.4 g/dl (13.5-17.5); LYMPH # 1.5 10^3/uL (1.5-5.0); LYMPH % 25.9 % (24.0-44.0); MEAN CORPUSCULAR HEMOGLOBIN 30.3 pg (27.0-33.0); MEAN CORPUSCULAR HGB CONC 31.6 g/dl (32.0-36.5); MONO # 0.6 10^3/uL (0.0-0.8); MONO % 9.4 % (2.0-8.0); NEUTROPHILS # 3.3 10^3/uL (1.5-8.5); PLATELET COUNT, AUTOMATED 178 10^3/uL (150-450); RED BLOOD COUNT 3.76 10^6/uL (4.30-6.10); WHITE BLOOD COUNT 5.8 10^3/uL (4.0-10.0)
[2022-03-06 10:28] LABS: ERYTHROCYTE SEDIMENTATION RATE 64 mm/hr (0-20)
[2022-03-06 10:40] LABS: C REACTIVE PROTEIN QUANTITATIV 0.3 MG/DL (0.00-0.30); CALCIUM LEVEL 9.2 MG/DL (8.8-10.2); CK-MB VALUE MASS < 1.0 NG/ML (<3.6); CPK CREATINE PHOSPHOKINASE 21 U/L (39-308); CREATININE FOR GFR 1.82 MG/DL (0.70-1.30); GLOMERULAR FILTRATION RATE 38.4 (>42); MB/CK RELATIVE INDEX 4.76 (< OR =4); POTASSIUM SERUM 4.6 MEQ/L (3.5-5.1)
[2022-03-06] MEDS: IPRATROPIUM 0.5MG/ALBUTEROL 2.5MG INH SOL UD 3ML (DUONEB) NEB SCH ×4 (12:00→23:44)
[2022-03-07] MEDS: IPRATROPIUM 0.5MG/ALBUTEROL 2.5MG INH SOL UD 3ML (DUONEB) NEB SCH ×2 (03:30→07:35)
[2022-03-07 06:00] VITALS: BP 154/62
[2022-03-07] MEDS: INSULIN LISPRO (NovoLOG) PER UNIT SC SCH (07:52)
[2022-03-07] MEDS: ATORVASTATIN 20 MG TAB PO SCH (08:37)
[2022-03-07] MEDS: OMEPRAZOLE 20MG CAP PO SCH (08:37)
[2022-03-07] MEDS: CHLORTHALIDONE 12.5MG PER 1/2 TABLET PO SCH (08:38)
[2022-03-07] MEDS: LOSARTAN 50MG TABLET PO SCH (08:38)
[2022-03-07] MEDS: amLODIPine 5 MG TAB PO SCH (08:39)
[2022-03-07] MEDS: CARVedilol 12.5 MG TAB PO SCH (08:39)
[2022-03-07] MEDS: LEVEMIR (INSULIN DETEMIR) 1 UNITS/0.01ML SC SCH (08:40)
[2022-03-07] MEDS: DIMETHICONE 2% OINTMENT(VANICREAM) 70GM TUBE TOP SCH (08:41)
[2022-03-07] MEDS ORDERED: amLODIPine 5 MG TAB PO ONE (10:20)
[2022-03-07] MEDS ORDERED: CHLO125TA PO (10:21)
[2022-03-07] MEDS ORDERED: ACE65ERTAB PO (10:21)
[2022-03-07] MEDS ORDERED: COZA50TA PO (10:21)
[2022-03-07] MEDS ORDERED: AMLO10TA PO (10:21)
[2022-03-07] MEDS ORDERED: INSUDET SC (10:23)
[2022-03-07 10:45] VITALS: BP 132/46
== END 2022-03-07 11:50 | DRG 603 ==
LOC: M ED 12:20 → EDBD 12:20 → M ED INP 17:18 → ENRESERV 20:21 → M MSPAV 20:56 → M PCU 02-20 11:40 → M MS5PR 02-24 09:04
PROVIDERS: ADMIT Family Medicine; ATTEND General Practice
DX: L03.116 Cellulitis of left lower limb (principal); R78.81 Bacteremia; G93.49 Other encephalopathy; N49.2 Inflammatory disorders of scrotum; N18.9 Chronic kidney disease, unspecified; K21.9 Gastro-esophageal reflux disease without esophagitis; J44.9 Chronic obstructive pulmonary disease, unspecified; G47.33 Obstructive sleep apnea (adult) (pediatric); I12.9 Hypertensive chronic kidney disease with stage 1 through stage 4 chronic kidney disease, or unspecified chronic kidney disease; E78.00 Pure hypercholesterolemia, unspecified; E11.40 Type 2 diabetes mellitus with diabetic neuropathy, unspecified; E11.22 Type 2 diabetes mellitus with diabetic chronic kidney disease; R41.82 Altered mental status, unspecified; N47.1 Phimosis; R62.7 Adult failure to thrive; F03.90 Unspecified dementia, unspecified severity, without behavioral disturbance, psychotic disturbance, mood disturbance, and anxiety; R00.1 Bradycardia, unspecified; E11.649 Type 2 diabetes mellitus with hypoglycemia without coma; I67.2 Cerebral atherosclerosis; R60.0 Localized edema; R31.0 Gross hematuria; B95.61 Methicillin susceptible Staphylococcus aureus infection as the cause of diseases classified elsewhere; Z90.49 Acquired absence of other specified parts of digestive tract; Z87.891 Personal history of nicotine dependence; Z74.1 Need for assistance with personal care; Z79.82 Long term (current) use of aspirin; Z79.4 Long term (current) use of insulin; Z87.81 Personal history of (healed) traumatic fracture; Z79.899 Other long term (current) drug therapy

== ENCOUNTER → 2022-03-13 | Outpatient (REF) | payer OTHER, MEDICARE ==
[~2022-03-13] MED LIST changes: +ACE65ERTAB PO; +AMLO10TA PO; +CHLO125TA PO; +COZA50TA PO; +INSUDET SC
[2022-03-13 08:44] LABS: HEMATOCRIT 34.2 % (42.0-52.0); MEAN CORPUSCULAR HEMOGLOBIN 30.4 pg (27.0-33.0); MEAN CORPUSCULAR HGB CONC 32.2 g/dl (32.0-36.5); MEAN CORPUSCULAR VOLUME 94.5 fl (80.0-96.0); PLATELET COUNT, AUTOMATED 151 10^3/uL (150-450); RED BLOOD COUNT 3.62 10^6/uL (4.30-6.10); WHITE BLOOD COUNT 6.1 10^3/uL (4.0-10.0)
[2022-03-13 09:03] LABS: HEMOGLOBIN A1c 7.1 %
[2022-03-13 09:05] LABS: CALCIUM LEVEL 9.1 MG/DL (8.8-10.2); CREATININE FOR GFR 1.73 MG/DL (0.70-1.30); GLOMERULAR FILTRATION RATE 40.8 (>42); POTASSIUM SERUM 4.4 MEQ/L (3.5-5.1)
== END ==
LOC: SKLAB7 08:00
PROVIDERS: ATTEND Nurse Practitioner Family
DX: E11.9 Type 2 diabetes mellitus without complications (principal); I10 Essential (primary) hypertension

== ENCOUNTER → 2022-03-14 | Outpatient (REF) | payer OTHER, MEDICARE | LOC: SKLAB7 14:28 | PROVIDERS: ATTEND Neuromusculoskeletal Medicine & OMM | DX: M79.606 Pain in leg, unspecified (principal) ==

== ENCOUNTER → 2022-03-14 | Outpatient (CLI) | payer OTHER, MEDICARE | LOC: M RAD 15:00 | PROVIDERS: ATTEND Neuromusculoskeletal Medicine & OMM | DX: L03.116 Cellulitis of left lower limb (principal) ==

== ENCOUNTER → 2022-03-14 | Outpatient (REF) | payer OTHER, MEDICARE | LOC: SKLAB7 08:00 | PROVIDERS: ATTEND Neuromusculoskeletal Medicine & OMM | DX: Z53.9 Procedure and treatment not carried out, unspecified reason (principal) ==

== ENCOUNTER → 2022-03-25 | Outpatient (REF) | LOC: SKLAB7 09:22 | PROVIDERS: ATTEND Nurse Practitioner Family | DX: E11.9 Type 2 diabetes mellitus without complications (principal); Z53.9 Procedure and treatment not carried out, unspecified reason ==

== ENCOUNTER → 2022-03-31 | Outpatient (REF) | payer MEDICARE, MEDICAID ==
[2022-03-31 14:08] LABS: APPEARANCE, URINE TURBID (CLEAR); BACTERIA, URINE AUTO 1+ (NEGATIVE); BILIRUBIN, URINE AUTO NEGATIVE (NEGATIVE); BLOOD, URINE BLOOD 3+ (NEGATIVE); COLOR, URINE YELLOW (YELLOW); GLUCOSE, URINE (UA) AUTO NEGATIVE (NEGATIVE); KETONE, URINE AUTO NEGATIVE (NEGATIVE); LEUKOCYTE ESTERASE, URINE AUTO 3+ (NEGATIVE); NITRITE, URINE AUTO NEGATIVE (NEGATIVE); PROTEIN, URINE AUTO 2+ mg/dL (NEGATIVE); RBC, URINE AUTO TNTC /HPF (0-3); SQUAMOUS EPITHELIAL CELL UR AU 1 /HPF (0-6); UROBILINOGEN, URINE AUTO 0.2 mg/dL (0.0-2.0); WBC, URINE AUTO TNTC /HPF (0-3)
== END ==
LOC: M SMT 12:45
PROVIDERS: ATTEND Urology
DX: R31.0 Gross hematuria (principal)

== ENCOUNTER → 2022-04-06 | Outpatient (REF) | payer MEDICARE, MEDICAID | LOC: SKLAB7 03-31 03:02 → EDSTATUS 04-15 16:05 | PROVIDERS: ATTEND Neuromusculoskeletal Medicine & OMM | DX: Z20.828 Contact with and (suspected) exposure to other viral communicable diseases (principal) ==

== ENCOUNTER → 2022-04-07 | Outpatient (REF) | payer MEDICARE ==
[2022-04-07 11:18] LABS: MEAN CORPUSCULAR HEMOGLOBIN 29.6 pg (27.0-33.0); MEAN CORPUSCULAR HGB CONC 31.4 g/dl (32.0-36.5); MEAN CORPUSCULAR VOLUME 94.3 fl (80.0-96.0); PLATELET COUNT, AUTOMATED 165 10^3/uL (150-450); RED BLOOD COUNT 3.71 10^6/uL (4.30-6.10); WHITE BLOOD COUNT 5.4 10^3/uL (4.0-10.0)
[2022-04-07 11:46] LABS: ALBUMIN 2.8 GM/DL (3.2-5.2); BILIRUBIN,TOTAL 0.3 MG/DL (0.2-1.0); CALCIUM LEVEL 8.6 MG/DL (8.8-10.2); CREATININE FOR GFR 2.38 MG/DL (0.70-1.30); GLOMERULAR FILTRATION RATE 28.2 (>42); POTASSIUM SERUM 4.8 MEQ/L (3.5-5.1); TOTAL PROTEIN 6.6 GM/DL (6.4-8.2)
== END ==
LOC: SKLAB2 07:00
PROVIDERS: ATTEND Neuromusculoskeletal Medicine & OMM
DX: U07.1 COVID-19 (principal); Z79.899 Other long term (current) drug therapy

== ENCOUNTER → 2022-04-10 | Outpatient (REF) | payer MEDICAID, MEDICARE ==
[2022-04-10 09:50] LABS: HEMATOCRIT 36.4 % (42.0-52.0); HEMOGLOBIN 11.6 g/dl (13.5-17.5); MEAN CORPUSCULAR HEMOGLOBIN 30.1 pg (27.0-33.0); MEAN CORPUSCULAR HGB CONC 31.9 g/dl (32.0-36.5); MEAN CORPUSCULAR VOLUME 94.3 fl (80.0-96.0); PLATELET COUNT, AUTOMATED 155 10^3/uL (150-450); RED BLOOD COUNT 3.86 10^6/uL (4.30-6.10); WHITE BLOOD COUNT 4.5 10^3/uL (4.0-10.0)
[2022-04-10 10:24] LABS: CALCIUM LEVEL 9.1 MG/DL (8.8-10.2); CREATININE FOR GFR 2.19 MG/DL (0.70-1.30); GLOMERULAR FILTRATION RATE 31.1 (>42); POTASSIUM SERUM 5.4 MEQ/L (3.5-5.1)
[2022-04-10 10:25] LABS: ALBUMIN 2.8 GM/DL (3.2-5.2); BILIRUBIN,TOTAL 0.2 MG/DL (0.2-1.0); TOTAL PROTEIN 6.7 GM/DL (6.4-8.2)
== END ==
LOC: SKLAB2 07:00
PROVIDERS: ATTEND Nurse Practitioner Family
DX: U07.1 COVID-19 (principal); Z79.899 Other long term (current) drug therapy

== ENCOUNTER → 2022-04-14 | Outpatient (REF) | payer MEDICAID, MEDICARE ==
[2022-04-14 08:47] LABS: HEMATOCRIT 36.2 % (42.0-52.0); HEMOGLOBIN 11.5 g/dl (13.5-17.5); MEAN CORPUSCULAR HEMOGLOBIN 29.9 pg (27.0-33.0); MEAN CORPUSCULAR HGB CONC 31.8 g/dl (32.0-36.5); MEAN CORPUSCULAR VOLUME 94.3 fl (80.0-96.0); PLATELET COUNT, AUTOMATED 149 10^3/uL (150-450); RED BLOOD COUNT 3.84 10^6/uL (4.30-6.10); WHITE BLOOD COUNT 4.2 10^3/uL (4.0-10.0)
[2022-04-14 09:26] LABS: ALBUMIN 2.8 GM/DL (3.2-5.2); BILIRUBIN,TOTAL 0.3 MG/DL (0.2-1.0); CALCIUM LEVEL 9.1 MG/DL (8.8-10.2); CREATININE FOR GFR 2.76 MG/DL (0.70-1.30); GLOMERULAR FILTRATION RATE 23.8 (>42); POTASSIUM SERUM 5.1 MEQ/L (3.5-5.1); TOTAL PROTEIN 6.8 GM/DL (6.4-8.2)
== END ==
LOC: SKLAB2 09:36
PROVIDERS: ATTEND Nurse Practitioner Family
DX: U07.1 COVID-19 (principal); Z79.899 Other long term (current) drug therapy

== ENCOUNTER → 2022-04-17 | Outpatient (REF) | payer MEDICARE, MEDICAID | LOC: SKLAB7 13:54 | PROVIDERS: ATTEND Nurse Practitioner Family | DX: R05.9 Cough, unspecified (principal); R09.89 Other specified symptoms and signs involving the circulatory and respiratory systems; Z53.8 Procedure and treatment not carried out for other reasons ==

== ENCOUNTER → 2022-04-22 | Outpatient (REF) | payer MEDICARE, MEDICAID ==
[2022-04-22 12:25] LABS: BASO % 0.4 % (0.0-1.0); EOS # 0.1 10^3/uL (0.0-0.5); EOS % 2.2 % (0.0-3.0); HEMATOCRIT 35.8 % (42.0-52.0); HEMOGLOBIN 11.8 g/dl (13.5-17.5); LYMPH # 1.5 10^3/uL (1.5-5.0); LYMPH % 29.3 % (24.0-44.0); MEAN CORPUSCULAR HEMOGLOBIN 30.6 pg (27.0-33.0); MEAN CORPUSCULAR VOLUME 92.7 fl (80.0-96.0); MONO # 0.6 10^3/uL (0.0-0.8); MONO % 12.4 % (2.0-8.0); NEUTROPHILS # 2.8 10^3/uL (1.5-8.5); NEUTROPHILS % 55.5 % (36.0-66.0); PLATELET COUNT, AUTOMATED 187 10^3/uL (150-450); RED BLOOD COUNT 3.86 10^6/uL (4.30-6.10); WHITE BLOOD COUNT 5.1 10^3/uL (4.0-10.0)
[2022-04-22 13:00] LABS: ALBUMIN 2.9 GM/DL (3.2-5.2); BILIRUBIN,TOTAL 0.5 MG/DL (0.2-1.0); CALCIUM LEVEL 9.1 MG/DL (8.8-10.2); CREATININE FOR GFR 1.81 MG/DL (0.70-1.30); GLOMERULAR FILTRATION RATE 38.7 (>42); POTASSIUM SERUM 4.5 MEQ/L (3.5-5.1)
== END ==
LOC: SKLAB7 11:15
PROVIDERS: ATTEND Nurse Practitioner Family
DX: N18.9 Chronic kidney disease, unspecified (principal)

== ENCOUNTER → 2022-05-07 | Outpatient (REF) | payer MEDICARE, MEDICAID | LOC: SKLAB7 11:51 | PROVIDERS: ATTEND Nurse Practitioner Family | DX: G47.33 Obstructive sleep apnea (adult) (pediatric) (principal); Z53.8 Procedure and treatment not carried out for other reasons ==

== ENCOUNTER → 2022-07-07 | Outpatient (REF) | payer MEDICARE, MEDICAID | LOC: SKLAB7 15:01 | PROVIDERS: ATTEND Nurse Practitioner Family | DX: T14.8XXA Other injury of unspecified body region, initial encounter (principal) ==

== ENCOUNTER → 2022-07-31 | Outpatient (REF) | payer MEDICARE, MEDICAID ==
[2022-07-31 10:54] LABS: CHOLESTEROL RISK RATIO 3.35 (<5); LDL CHOLESTEROL 56.4 MG/DL (<100)
[2022-07-31 13:22] LABS: HEMOGLOBIN A1c 5.9 % (4.0-6.0)
== END ==
LOC: SKLAB7 11:41
PROVIDERS: ATTEND Nurse Practitioner Family
DX: E11.9 Type 2 diabetes mellitus without complications (principal); E78.5 Hyperlipidemia, unspecified

== ENCOUNTER → 2022-08-29 | Outpatient (REF) | payer MEDICARE, MEDICAID ==
[2022-08-29 08:01] LABS: HEMOGLOBIN 11.2 g/dl (13.5-17.5); MEAN CORPUSCULAR HEMOGLOBIN 30.4 pg (27.0-33.0); MEAN CORPUSCULAR HGB CONC 31.1 g/dl (32.0-36.5); MEAN CORPUSCULAR VOLUME 97.8 fl (80.0-96.0); PLATELET COUNT, AUTOMATED 141 10^3/uL (150-450); RED BLOOD COUNT 3.68 10^6/uL (4.30-6.10); WHITE BLOOD COUNT 5.5 10^3/uL (4.0-10.0)
[2022-08-29 08:32] LABS: ALBUMIN 2.7 G/DL (3.2-5.2); BILIRUBIN,TOTAL 0.3 MG/DL (0.3-1.2); CALCIUM LEVEL 8.4 MG/DL (8.3-10.6); CREATININE FOR GFR 1.24 MG/DL (0.70-1.30); GLOMERULAR FILTRATION RATE 59.7 (>35); POTASSIUM SERUM 4.3 MMOL/L (3.5-5.1); TOTAL PROTEIN 6.1 G/DL (5.7-8.2)
== END ==
LOC: SKLAB7 15:01
PROVIDERS: ATTEND Nurse Practitioner Family
DX: I50.9 Heart failure, unspecified (principal)

== ENCOUNTER → 2022-11-05 | Outpatient (REF) | payer MEDICARE, OTHER ==
[2022-11-05 19:53] LABS: MEAN CORPUSCULAR HEMOGLOBIN 30.5 pg (27.0-33.0); MEAN CORPUSCULAR HGB CONC 31.6 g/dl (32.0-36.5); MEAN CORPUSCULAR VOLUME 96.7 fl (80.0-96.0); PLATELET COUNT, AUTOMATED 122 10^3/uL (150-450); RED BLOOD COUNT 3.93 10^6/uL (4.30-6.10); WHITE BLOOD COUNT 11.4 10^3/uL (4.0-10.0)
[2022-11-05 20:16] LABS: CALCIUM LEVEL 8.5 MG/DL (8.3-10.6); CREATININE FOR GFR 1.59 MG/DL (0.70-1.30); GLOMERULAR FILTRATION RATE 44.8 (>35); POTASSIUM SERUM 4.4 MMOL/L (3.5-5.1)
== END ==
LOC: SKLAB7 16:33
PROVIDERS: ATTEND Neuromusculoskeletal Medicine & OMM
DX: R09.89 Other specified symptoms and signs involving the circulatory and respiratory systems (principal)

== ENCOUNTER → 2022-11-27 | Outpatient (REF) ==
[2022-11-27 08:09] LABS: HEMATOCRIT 36.6 % (42.0-52.0); HEMOGLOBIN 11.4 g/dl (13.5-17.5); MEAN CORPUSCULAR HEMOGLOBIN 30.1 pg (27.0-33.0); MEAN CORPUSCULAR HGB CONC 31.1 g/dl (32.0-36.5); MEAN CORPUSCULAR VOLUME 96.6 fl (80.0-96.0); PLATELET COUNT, AUTOMATED 211 10^3/uL (150-450); RED BLOOD COUNT 3.79 10^6/uL (4.30-6.10); WHITE BLOOD COUNT 7.2 10^3/uL (4.0-10.0)
[2022-11-27 08:36] LABS: HEMOGLOBIN A1c 7.7 % (4.0-6.0)
[2022-11-27 09:01] LABS: ALBUMIN 2.5 G/DL (3.2-5.2); BILIRUBIN,TOTAL 0.7 MG/DL (0.3-1.2); CHOLESTEROL RISK RATIO 3.51 (<5); CREATININE FOR GFR 1.43 MG/DL (0.70-1.30); GLOMERULAR FILTRATION RATE 50.7 (>35); HDL CHOLESTEROL 41.3 MG/DL (>40); LDL CHOLESTEROL 74.3 MG/DL (<100); NON-HDL-C 103.7 MG/DL; TOTAL PROTEIN 6.6 G/DL (5.7-8.2)
== END ==
LOC: SKLAB7 07:00
PROVIDERS: ATTEND Internal Medicine
DX: I50.9 Heart failure, unspecified (principal); E11.9 Type 2 diabetes mellitus without complications; E78.5 Hyperlipidemia, unspecified

== ENCOUNTER → 2022-11-27 | Outpatient (CLI) | payer MEDICARE, MEDICAID | LOC: M RAD 11:20 | PROVIDERS: ATTEND Neuromusculoskeletal Medicine & OMM | DX: M79.89 Other specified soft tissue disorders (principal) ==

== ENCOUNTER → 2022-12-01 | Outpatient (REF) | payer MEDICARE, MEDICAID ==
[2022-12-01 16:14] LABS: ALBUMIN 2.2 G/DL (3.2-5.2); BILIRUBIN,TOTAL 0.4 MG/DL (0.3-1.2); CALCIUM LEVEL 7.8 MG/DL (8.3-10.6); CREATININE FOR GFR 1.47 MG/DL (0.70-1.30); GLOMERULAR FILTRATION RATE 49.1 (>35); POTASSIUM SERUM 4.8 MMOL/L (3.5-5.1); TOTAL PROTEIN 6.2 G/DL (5.7-8.2)
== END ==
LOC: SKLAB7 14:49
PROVIDERS: ATTEND Internal Medicine
DX: K76.9 Liver disease, unspecified (principal)

== ENCOUNTER → 2022-12-02 | Outpatient (CLI) | payer MEDICAID, MEDICARE ==
[~2022-12-02] MED LIST changes: +ISOVUE-370 76% 100ML VIAL As Ordered ONE
== END ==
LOC: M RAD 08:55
PROVIDERS: ATTEND Internal Medicine
DX: K76.9 Liver disease, unspecified (principal)
CPT/HCPCS: 74170; Q9967

== ENCOUNTER → 2022-12-07 | Outpatient (REF) | payer MEDICARE ==
[~2022-12-07] MED LIST changes: -ISOVUE-370 76% 100ML VIAL As Ordered ONE
[2022-12-07 09:18] LABS: ALBUMIN 2.7 G/DL (3.2-5.2); BILIRUBIN,TOTAL 0.5 MG/DL (0.3-1.2); CALCIUM LEVEL 8.6 MG/DL (8.3-10.6); CREATININE FOR GFR 1.35 MG/DL (0.70-1.30); GLOMERULAR FILTRATION RATE 54.1 (>35); POTASSIUM SERUM 4.4 MMOL/L (3.5-5.1); TOTAL PROTEIN 6.9 G/DL (5.7-8.2)
== END ==
LOC: SKLAB7 07:00
PROVIDERS: ATTEND Internal Medicine
DX: R13.10 Dysphagia, unspecified (principal)

== ENCOUNTER → 2022-12-23 | Outpatient (REF) | payer MEDICARE | LOC: SKLAB7 16:02 | PROVIDERS: ATTEND Internal Medicine | DX: J98.4 Other disorders of lung (principal) ==

== ENCOUNTER → 2022-12-23 | Outpatient (REF) | payer MEDICARE ==
[2022-12-23 08:04] LABS: HEMATOCRIT 37.4 % (42.0-52.0); HEMOGLOBIN 11.6 g/dl (13.5-17.5); MEAN CORPUSCULAR HEMOGLOBIN 29.7 pg (27.0-33.0); MEAN CORPUSCULAR VOLUME 95.7 fl (80.0-96.0); PLATELET COUNT, AUTOMATED 149 10^3/uL (150-450); RED BLOOD COUNT 3.91 10^6/uL (4.30-6.10); WHITE BLOOD COUNT 5.3 10^3/uL (4.0-10.0)
[2022-12-23 08:12] LABS: ALBUMIN 2.6 G/DL (3.2-5.2); CALCIUM LEVEL 8.5 MG/DL (8.3-10.6); CREATININE FOR GFR 1.43 MG/DL (0.70-1.30); GLOMERULAR FILTRATION RATE 50.7 (>35); POTASSIUM SERUM 4.1 MMOL/L (3.5-5.1); TOTAL PROTEIN 6.2 G/DL (5.7-8.2)
== END ==
LOC: SKLAB7 13:59
PROVIDERS: ATTEND Internal Medicine
DX: N18.9 Chronic kidney disease, unspecified (principal); E11.21 Type 2 diabetes mellitus with diabetic nephropathy

== ENCOUNTER → 2023-01-05 | Outpatient (CLI) | payer MEDICARE | LOC: M RAD 08:01 | PROVIDERS: ATTEND Internal Medicine | DX: R10.11 Right upper quadrant pain (principal) ==

== ENCOUNTER → 2023-01-05 | Outpatient (CLI) | payer MEDICARE ==
[~2023-01-05] MED LIST changes: -COZA50TA PO; +LOSA-528 PO
== END ==
LOC: M RAD 07:59
PROVIDERS: ATTEND Nurse Practitioner Family
DX: I73.9 Peripheral vascular disease, unspecified (principal)

== ENCOUNTER → 2023-01-22 | Outpatient (REF) | payer MEDICARE ==
[2023-01-22 08:34] LABS: HEMATOCRIT 35.4 % (42.0-52.0); MEAN CORPUSCULAR HEMOGLOBIN 29.7 pg (27.0-33.0); MEAN CORPUSCULAR HGB CONC 31.1 g/dl (32.0-36.5); MEAN CORPUSCULAR VOLUME 95.7 fl (80.0-96.0); PLATELET COUNT, AUTOMATED 131 10^3/uL (150-450); WHITE BLOOD COUNT 6.2 10^3/uL (4.0-10.0)
[2023-01-22 08:43] LABS: INR 1.1; PROTHROMBIN TIME 14.4 SECONDS (12.5-14.5)
[2023-01-22 08:52] LABS: HEMOGLOBIN A1c 7.1 % (4.0-6.0)
[2023-01-22 09:01] LABS: ALBUMIN 2.5 G/DL (3.2-5.2); CALCIUM LEVEL 8.4 MG/DL (8.3-10.6); CHOLESTEROL RISK RATIO 4.88 (<5); CREATININE FOR GFR 1.54 MG/DL (0.70-1.30); GLOMERULAR FILTRATION RATE 46.5 (>35); HDL CHOLESTEROL 46.7 MG/DL (>40); LDL CHOLESTEROL 153.5 MG/DL (<100); NON-HDL-C 181.3 MG/DL; POTASSIUM SERUM 4.3 MMOL/L (3.5-5.1)
== END ==
LOC: SKLAB7 07:29
PROVIDERS: ATTEND Internal Medicine
DX: R16.0 Hepatomegaly, not elsewhere classified (principal); Z79.899 Other long term (current) drug therapy

== ENCOUNTER → 2023-01-27 | Outpatient (CLI) | payer MEDICARE ==
[~2023-01-27] MED LIST changes: +PROHANCE 279.3MG/ML 5ML VIAL As Ordered ONE
== END ==
LOC: M RAD 10:24
PROVIDERS: ATTEND Internal Medicine
DX: K76.0 Fatty (change of) liver, not elsewhere classified (principal)
CPT/HCPCS: 74183; A9576

== ENCOUNTER → 2023-02-10 | Outpatient (CLI) | payer MEDICARE, MEDICAID ==
[~2023-02-10] MED LIST changes: -PROHANCE 279.3MG/ML 5ML VIAL As Ordered ONE
== END ==
LOC: M SLEEP 20:00
PROVIDERS: ATTEND Nurse Practitioner Family
DX: G47.33 Obstructive sleep apnea (adult) (pediatric) (principal)

== ENCOUNTER → 2023-03-12 | Outpatient (CLI) | payer MEDICARE, MEDICAID | LOC: M SLEEP 20:00 | PROVIDERS: ATTEND Nurse Practitioner Family | DX: G47.33 Obstructive sleep apnea (adult) (pediatric) (principal) ==

== ENCOUNTER 2023-04-09 18:43 | Emergency (ER) | payer MEDICAID, MEDICARE ==
[2023-04-09] MEDS ORDERED: NS 1,000 ML IV SCH (19:00)
[2023-04-09] MEDS ORDERED: MORPHINE 2 MG/ML 1ML VIAL IV PRN (19:05)
[2023-04-09] MEDS ORDERED: ONDANSETRON 4MG 2ML VIAL IV ONE (19:05)
[2023-04-09 19:32] LABS: BASO % 0.1 % (0.0-1.0); EOS # 0.1 10^3/uL (0.0-0.5); EOS % 0.6 % (0.0-3.0); HEMATOCRIT 33.8 % (42.0-52.0); HEMOGLOBIN 10.8 g/dl (13.5-17.5); LYMPH # 1.6 10^3/uL (1.5-5.0); LYMPH % 15.1 % (24.0-44.0); MEAN CORPUSCULAR HEMOGLOBIN 29.9 pg (27.0-33.0); MEAN CORPUSCULAR VOLUME 93.6 fl (80.0-96.0); MONO % 9.6 % (2.0-8.0); NEUTROPHILS # 8.1 10^3/uL (1.5-8.5); NEUTROPHILS % 74.3 % (36.0-66.0); PLATELET COUNT, AUTOMATED 168 10^3/uL (150-450); RED BLOOD COUNT 3.61 10^6/uL (4.30-6.10); WHITE BLOOD COUNT 10.9 10^3/uL (4.0-10.0)
[2023-04-09 19:53] LABS: ALBUMIN 2.3 G/DL (3.2-5.2); BILIRUBIN,DIRECT 0.7 MG/DL (<0.4); CALCIUM LEVEL 8.5 MG/DL (8.3-10.6); CREATININE FOR GFR 1.45 MG/DL (0.70-1.30); GLOMERULAR FILTRATION RATE 49.9 (>35); POTASSIUM SERUM 4.8 MMOL/L (3.5-5.1); TOTAL PROTEIN 6.6 G/DL (5.7-8.2)
[2023-04-09] MEDS ORDERED: ISOVUE-370 76% 100ML VIAL As Ordered ONE (19:56)
[2023-04-09 21:00] VITALS: BP 151/69; TEMP 98
[2023-04-09 22:13] VITALS: O2SAT 97
[2023-04-09] MEDS ORDERED: CEFD300C PO (22:23)
[2023-04-09] MEDS ORDERED: cefTRIAXone SOD 1 GM in D5W MINI-BAG PLUS 50 ML IV ONE (22:25)
== END 2023-04-09 23:43 | disposition home or self-care (01) ==
LOC: M ED 18:43
DX: N39.0 Urinary tract infection, site not specified (principal); I12.9 Hypertensive chronic kidney disease with stage 1 through stage 4 chronic kidney disease, or unspecified chronic kidney disease; N18.9 Chronic kidney disease, unspecified; E78.5 Hyperlipidemia, unspecified; K21.9 Gastro-esophageal reflux disease without esophagitis; J44.9 Chronic obstructive pulmonary disease, unspecified; G47.33 Obstructive sleep apnea (adult) (pediatric); Z87.891 Personal history of nicotine dependence; Z79.899 Other long term (current) drug therapy; Z79.4 Long term (current) use of insulin; E11.9 Type 2 diabetes mellitus without complications
CPT/HCPCS: 74177; 80048; 80076; 81001; 83605; 83690; 85025; 87086; 96365; 96366; 96367; 96375; 99284; J0696; J2405; Q9967

== ENCOUNTER → 2023-04-16 | Outpatient (REF) | payer MEDICARE ==
[~2023-04-16] MED LIST changes: +CEFD300C PO
[2023-04-16 15:01] LABS: APPEARANCE, URINE HAZY (CLEAR); BACTERIA, URINE AUTO NEGATIVE (NEGATIVE); BILIRUBIN, URINE AUTO NEGATIVE (NEGATIVE); BLOOD, URINE BLOOD NEGATIVE (NEGATIVE); COLOR, URINE YELLOW (YELLOW); GLUCOSE, URINE (UA) AUTO NEGATIVE (NEGATIVE); KETONE, URINE AUTO NEGATIVE (NEGATIVE); LEUKOCYTE ESTERASE, URINE AUTO TRACE (NEGATIVE); MUCUS, URINE SMALL (NEGATIVE); NITRITE, URINE AUTO NEGATIVE (NEGATIVE); PROTEIN, URINE AUTO 1+ mg/dL (NEGATIVE); RBC, URINE AUTO 1 /HPF (0-3); SPECIFIC GRAVITY URINE AUTO 1.009 (1.002-1.035); SQUAMOUS EPITHELIAL CELL UR AU 1 /HPF (0-6); UROBILINOGEN, URINE AUTO 0.2 mg/dL (0.0-2.0); WBC, URINE AUTO 25 /HPF (0-3)
== END ==
LOC: SKLAB7 14:17
PROVIDERS: ATTEND Internal Medicine
DX: R32 Unspecified urinary incontinence (principal)

== ENCOUNTER → 2023-04-27 | Outpatient (REF) | payer MEDICARE, MEDICAID ==
[~2023-04-27] MED LIST changes: +ACET1TAB55 PO; +ACET65SU PR; +AMLO1TAB25 PO; +ASPI81CH8 PO; +ATOR1TAB21 PO; +BENG1CRE TOP; +BISA10SU PR; +BREO1INH INH; +FLEEENE12 PR; +JUVE1POW PO; +LASI20TA3 PO; +MEDIPAD6 TOP; +MOM30SS2 PO; +OMEP-173 PO; +ONDA-83 PO; +VITMTA PO
[2023-04-27 18:53] LABS: APPEARANCE, URINE CLEAR (CLEAR); BACTERIA, URINE AUTO NEGATIVE (NEGATIVE); BILIRUBIN, URINE AUTO NEGATIVE (NEGATIVE); BLOOD, URINE BLOOD NEGATIVE (NEGATIVE); COLOR, URINE YELLOW (YELLOW); GLUCOSE, URINE (UA) AUTO NEGATIVE (NEGATIVE); KETONE, URINE AUTO NEGATIVE (NEGATIVE); LEUKOCYTE ESTERASE, URINE AUTO NEGATIVE (NEGATIVE); NITRITE, URINE AUTO NEGATIVE (NEGATIVE); PROTEIN, URINE AUTO 2+ mg/dL (NEGATIVE); RBC, URINE AUTO 2 /HPF (0-3); SPECIFIC GRAVITY URINE AUTO 1.012 (1.002-1.035); SQUAMOUS EPITHELIAL CELL UR AU 0 /HPF (0-6); UROBILINOGEN, URINE AUTO 0.2 mg/dL (0.0-2.0); WBC, URINE AUTO 1 /HPF (0-3)
== END ==
LOC: M SMT 17:05
PROVIDERS: ATTEND Urology
DX: N32.89 Other specified disorders of bladder (principal); Z79.899 Other long term (current) drug therapy
CPT/HCPCS: 52204; 81001; 87086; 88108; 88305; G0463

== ENCOUNTER 2023-05-17 02:04 | Inpatient (IN) | payer MEDICARE, MEDICAID ==
[~2023-05-17] VITALS: Ht 167.6 cm; Wt 82.2 kg
[~2023-05-17 02:04] MED LIST changes: -ACET1TAB55 PO; -ACET65SU PR; -AMLO1TAB25 PO; -ASPI81CH8 PO; -ATOR1TAB21 PO; -BENG1CRE TOP; -BISA10SU PR; -BREO1INH INH; -FLEEENE12 PR; -JUVE1POW PO; -LASI20TA3 PO; -MEDIPAD6 TOP; -MOM30SS2 PO; -OMEP-173 PO; -ONDA-83 PO; -VITMTA PO
[2023-05-17] MEDS ORDERED: NS 1,000 ML IV ONE ×2 (02:20)
[2023-05-17 03:01] LABS: BASO % 0.2 % (0.0-1.0); EOS # 0.1 10^3/uL (0.0-0.5); EOS % 2.1 % (0.0-3.0); HEMATOCRIT 34.4 % (42.0-52.0); LYMPH # 0.5 10^3/uL (1.5-5.0); LYMPH % 8.3 % (24.0-44.0); MEAN CORPUSCULAR HEMOGLOBIN 30.6 pg (27.0-33.0); MEAN CORPUSCULAR VOLUME 95.8 fl (80.0-96.0); MONO # 0.1 10^3/uL (0.0-0.8); MONO % 1.6 % (2.0-8.0); NEUTROPHILS # 5.4 10^3/uL (1.5-8.5); NEUTROPHILS % 87.3 % (36.0-66.0); PLATELET COUNT, AUTOMATED 145 10^3/uL (150-450); RED BLOOD COUNT 3.59 10^6/uL (4.30-6.10); WHITE BLOOD COUNT 6.1 10^3/uL (4.0-10.0)
[2023-05-17 03:16] LABS: C REACTIVE PROTEIN QUANTITATIV 14.3 MG/DL (<1.0)
[2023-05-17 03:18] LABS: ALBUMIN 2.1 G/DL (3.2-5.2); BILIRUBIN,DIRECT 1.2 MG/DL (<0.4); BILIRUBIN,TOTAL 1.5 MG/DL (0.3-1.2); CALCIUM LEVEL 7.7 MG/DL (8.3-10.6); CREATININE FOR GFR 1.44 MG/DL (0.70-1.30); GLOMERULAR FILTRATION RATE 50.2 (>35); INR 1.27; POTASSIUM SERUM 3.5 MMOL/L (3.5-5.1); PROTHROMBIN TIME 15.6 SECONDS (12.5-14.5); TOTAL PROTEIN 6.5 G/DL (5.7-8.2)
[2023-05-17 03:19] LABS: PARTIAL THROMBOPLASTIN TIME 36.7 SECONDS (24.8-34.2)
[2023-05-17 03:57] LABS: PROCALCITONIN 9.32 ng/ml
[2023-05-17] MEDS ORDERED: ACETAMINOPHEN 325 MG TAB PO ONE (04:10)
[2023-05-17] MEDS ORDERED: PIPERACILLIN/TAZOBACTAM SOD 4.5 GM in D5W MINI-BAG PLUS 50 ML IV ONE ×2 (05:55→14:00)
[2023-05-17] MEDS: LOSARTAN 50MG TABLET PO SCH (09:00)
[2023-05-17] MEDS ORDERED: CURRENT HEIGHT AND WEIGHT NEEDED ON PATIENT XX SCH (09:00)
[2023-05-17] MEDS ORDERED: MED REC IN PROGRESS XX SCH (11:05)
[2023-05-17] MEDS ORDERED: MED REC CURRENTLY UNOBTAINABLE XX SCH (11:15)
[2023-05-17] MEDS ORDERED: DEXTROSE 50% 50ML SYRINGE IV PRN (15:15)
[2023-05-17] MEDS ORDERED: GLUCAGON INJ 1MG VIAL SC PRN (15:15)
[2023-05-17] MEDS ORDERED: GLUCOSE 4GM CHEW TABLET PO PRN (15:15)
[2023-05-17] MEDS: INSULIN LISPRO (NovoLOG) PER UNIT SC SCH ×2 (17:30→20:57)
[2023-05-17] MEDS ORDERED: FLEEENE12 PR (17:54)
[2023-05-17] MEDS ORDERED: ACET1TAB55 PO ×2 (17:54)
[2023-05-17] MEDS ORDERED: BREO1INH INH (17:54)
[2023-05-17] MEDS ORDERED: TRUL0.5I SC (17:54)
[2023-05-17] MEDS ORDERED: VITMTA PO (17:54)
[2023-05-17] MEDS ORDERED: JUVE1POW PO (17:54)
[2023-05-17] MEDS ORDERED: LASI20TA3 PO (17:54)
[2023-05-17] MEDS ORDERED: MOM30SS2 PO (17:54)
[2023-05-17] MEDS ORDERED: AMLO1TAB25 PO (17:54)
[2023-05-17] MEDS ORDERED: ASPI81CH8 PO (17:54)
[2023-05-17] MEDS ORDERED: ATOR1TAB21 PO (17:54)
[2023-05-17] MEDS ORDERED: MEDIPAD6 TOP (17:54)
[2023-05-17] MEDS ORDERED: ACET65SU PR (17:54)
[2023-05-17] MEDS ORDERED: BISA10SU PR (17:54)
[2023-05-17] MEDS ORDERED: OMEP-173 PO (17:54)
[2023-05-17] MEDS ORDERED: INSUDET SC (17:54)
[2023-05-17] MEDS ORDERED: ONDA-83 PO (17:54)
[2023-05-17] MEDS ORDERED: BENG1CRE TOP (17:59)
[2023-05-17] MEDS ORDERED: HOME MED LIST COMPLETE! XX SCH (18:00)
[2023-05-17 18:49] VITALS: BP 134/53; TEMP 97.3; O2SAT 100
[2023-05-17] MEDS: ATORVASTATIN 20 MG TAB PO SCH (20:55)
[2023-05-17] MEDS: OMEPRAZOLE 20MG CAP PO SCH (20:55)
[2023-05-17] MEDS: CARVedilol 12.5 MG TAB PO SCH (20:58)
[2023-05-17 22:00] VITALS: BP 141/53; TEMP 97.7; O2SAT 93
[2023-05-17] MEDS: PIPERACILLIN/TAZOBACTAM SOD 4.5 GM in D5W MINI-BAG PLUS 50 ML IV SCH (22:36)
[2023-05-18] VITALS (7 sets, daily range): BP systolic 120–141; BP diastolic 53–59; TEMP 97.5–97.9; O2SAT 90–98
[2023-05-18 05:43] LABS: HEMATOCRIT 31.7 % (42.0-52.0); HEMOGLOBIN 9.8 g/dl (13.5-17.5); MEAN CORPUSCULAR HEMOGLOBIN 29.8 pg (27.0-33.0); MEAN CORPUSCULAR HGB CONC 30.9 g/dl (32.0-36.5); MEAN CORPUSCULAR VOLUME 96.4 fl (80.0-96.0); PLATELET COUNT, AUTOMATED 126 10^3/uL (150-450); RED BLOOD COUNT 3.29 10^6/uL (4.30-6.10); WHITE BLOOD COUNT 7.9 10^3/uL (4.0-10.0)
[2023-05-18 06:16] LABS: CALCIUM LEVEL 8.4 MG/DL (8.3-10.6); CREATININE FOR GFR 1.53 MG/DL (0.70-1.30); GLOMERULAR FILTRATION RATE 46.9 (>35); MAGNESIUM LEVEL 1.5 MG/DL (1.8-2.4); POTASSIUM SERUM 3.5 MMOL/L (3.5-5.1)
[2023-05-18] MEDS: PIPERACILLIN/TAZOBACTAM SOD 4.5 GM in D5W MINI-BAG PLUS 50 ML IV SCH ×3 (06:19→22:26)
[2023-05-18] MEDS: ASPIRIN 81MG CHEW TABLET PO SCH (08:50)
[2023-05-18] MEDS: LOSARTAN 50MG TABLET PO SCH (08:50)
[2023-05-18] MEDS: OMEPRAZOLE 20MG CAP PO SCH ×2 (08:50→20:27)
[2023-05-18] MEDS: CARVedilol 12.5 MG TAB PO SCH ×2 (08:50→20:28)
[2023-05-18] MEDS: INSULIN LISPRO (NovoLOG) PER UNIT SC SCH ×4 (08:51→20:28)
[2023-05-18] MEDS: ENOXAPARIN 40MG/0.4ML SYRINGE (J1650 PER 10MG) SC SCH (08:51)
[2023-05-18] MEDS ORDERED: OMEPRAZOLE 20MG CAP PO SCH (09:00)
[2023-05-18] MEDS ORDERED: ATORVASTATIN 20 MG TAB PO SCH (09:00)
[2023-05-18] MEDS ORDERED: MAG SULF 1GM/100ML (MAG RUN) 1 GM in IV 1 EA IV ONE (12:00)
[2023-05-18 12:17] LABS: FERRITIN 153.2 NG/ML (10.5-307.3); PERCENT SATURATION 8.4 % (19.7-50.0)
[2023-05-18] MEDS ORDERED: MORPHINE 2 MG/ML 1ML VIAL IV PRN (12:45)
[2023-05-18] MEDS: traMADol 50 MG TAB PO PRN (13:48)
[2023-05-18] MEDS: ATORVASTATIN 20 MG TAB PO SCH (20:27)
[2023-05-19 02:00] VITALS: BP 121/55; TEMP 98.4; O2SAT 96
[2023-05-19] MEDS: PIPERACILLIN/TAZOBACTAM SOD 4.5 GM in D5W MINI-BAG PLUS 50 ML IV SCH ×3 (05:50→23:47)
[2023-05-19 06:00] VITALS: BP 124/55; TEMP 97.9; O2SAT 95
[2023-05-19 06:15] LABS: HEMATOCRIT 31.8 % (42.0-52.0); HEMOGLOBIN 9.9 g/dl (13.5-17.5); MEAN CORPUSCULAR HGB CONC 31.1 g/dl (32.0-36.5); MEAN CORPUSCULAR VOLUME 96.4 fl (80.0-96.0); PLATELET COUNT, AUTOMATED 137 10^3/uL (150-450); WHITE BLOOD COUNT 5.1 10^3/uL (4.0-10.0)
[2023-05-19 06:43] LABS: CALCIUM LEVEL 8.2 MG/DL (8.3-10.6); CREATININE FOR GFR 1.77 MG/DL (0.70-1.30); GLOMERULAR FILTRATION RATE 39.6 (>35); MAGNESIUM LEVEL 1.8 MG/DL (1.8-2.4)
[2023-05-19] MEDS: INSULIN LISPRO (NovoLOG) PER UNIT SC SCH ×4 (08:00→23:35)
[2023-05-19] MEDS: ADVAIR HFA 115/21MCG INHALER INH SCH ×2 (08:00→19:15)
[2023-05-19] MEDS: ENOXAPARIN 40MG/0.4ML SYRINGE (J1650 PER 10MG) SC SCH (08:01)
[2023-05-19] MEDS: ASPIRIN 81MG CHEW TABLET PO SCH (08:02)
[2023-05-19] MEDS: OMEPRAZOLE 20MG CAP PO SCH ×2 (08:02→23:47)
[2023-05-19 08:12] VITALS: BP 100/74
[2023-05-19] MEDS: CARVedilol 12.5 MG TAB PO SCH ×2 (08:32→23:47)
[2023-05-19] MEDS: LOSARTAN 50MG TABLET PO SCH (08:33)
[2023-05-19] MEDS ORDERED: LR 500 ML IV ONE (13:00)
[2023-05-19] MEDS ORDERED: LR 500 ML IV SCH (13:00)
[2023-05-19 14:00] VITALS: BP 101/71; TEMP 98.2; O2SAT 92
[2023-05-19 14:00] LABS: PROCALCITONIN 22.52 ng/ml
[2023-05-19 14:55] LABS: ALBUMIN 1.9 G/DL (3.2-5.2); BILIRUBIN,DIRECT 0.8 MG/DL (<0.4); TOTAL PROTEIN 6.2 G/DL (5.7-8.2)
[2023-05-19 21:00] VITALS: BP 158/56; TEMP 98.1; O2SAT 97
[2023-05-19] MEDS: ATORVASTATIN 20 MG TAB PO SCH (23:47)
[2023-05-19] MEDS: traMADol 50 MG TAB PO PRN (23:49)
[2023-05-20 01:36] VITALS: TEMP 98.2; O2SAT 94
[2023-05-20 05:54] VITALS: BP 151/69; TEMP 98.4; O2SAT 95
[2023-05-20] MEDS: PIPERACILLIN/TAZOBACTAM SOD 4.5 GM in D5W MINI-BAG PLUS 50 ML IV SCH (06:08)
[2023-05-20 06:35] LABS: HEMOGLOBIN 10.4 g/dl (13.5-17.5); MEAN CORPUSCULAR HGB CONC 31.5 g/dl (32.0-36.5); MEAN CORPUSCULAR VOLUME 95.1 fl (80.0-96.0); PLATELET COUNT, AUTOMATED 145 10^3/uL (150-450); RED BLOOD COUNT 3.47 10^6/uL (4.30-6.10); WHITE BLOOD COUNT 4.5 10^3/uL (4.0-10.0)
[2023-05-20 06:53] LABS: BILIRUBIN,DIRECT 0.8 MG/DL (<0.4); CALCIUM LEVEL 8.8 MG/DL (8.3-10.6); CREATININE FOR GFR 1.52 MG/DL (0.70-1.30); GLOMERULAR FILTRATION RATE 47.2 (>35); MAGNESIUM LEVEL 1.7 MG/DL (1.8-2.4); POTASSIUM SERUM 4.1 MMOL/L (3.5-5.1); TOTAL PROTEIN 6.4 G/DL (5.7-8.2)
[2023-05-20] MEDS: ADVAIR HFA 115/21MCG INHALER INH SCH ×2 (07:26→19:40)
[2023-05-20] MEDS: CARVedilol 12.5 MG TAB PO SCH ×2 (09:00→21:14)
[2023-05-20] MEDS: ENOXAPARIN 40MG/0.4ML SYRINGE (J1650 PER 10MG) SC SCH (09:11)
[2023-05-20] MEDS: ERTAPENEM SODIUM 1 GM in NS MINI-BAG PLUS 50 ML IV SCH (09:11)
[2023-05-20] MEDS: INSULIN LISPRO (NovoLOG) PER UNIT SC SCH ×4 (09:12→21:00)
[2023-05-20] MEDS: MAGNESIUM OXIDE 400MG TAB (MAG-OX) PO SCH ×3 (09:14→21:15)
[2023-05-20] MEDS: OMEPRAZOLE 20MG CAP PO SCH ×2 (09:14→21:15)
[2023-05-20] MEDS: ASPIRIN 81MG CHEW TABLET PO SCH (09:14)
[2023-05-20] MEDS: IPRATROPIUM 0.5MG/ALBUTEROL 2.5MG INH SOL UD 3ML (DUONEB) NEB SCH ×4 (09:51→19:39)
[2023-05-20 13:49] LABS: C REACTIVE PROTEIN QUANTITATIV 8.3 MG/DL (<1.0)
[2023-05-20 14:00] VITALS: BP 122/62; TEMP 97.7; O2SAT 95
[2023-05-20 14:25] LABS: ERYTHROCYTE SEDIMENTATION RATE > 130 mm/hr (0-20)
[2023-05-20 20:53] VITALS: BP 154/51; TEMP 98.3; O2SAT 95
[2023-05-20] MEDS: traMADol 50 MG TAB PO PRN (21:15)
[2023-05-20] MEDS: ATORVASTATIN 20 MG TAB PO SCH (21:15)
[2023-05-21 05:35] VITALS: BP 157/71; TEMP 97.8; O2SAT 93
[2023-05-21 06:47] LABS: HEMATOCRIT 32.8 % (42.0-52.0); HEMOGLOBIN 10.3 g/dl (13.5-17.5); MEAN CORPUSCULAR HEMOGLOBIN 29.8 pg (27.0-33.0); MEAN CORPUSCULAR HGB CONC 31.4 g/dl (32.0-36.5); MEAN CORPUSCULAR VOLUME 94.8 fl (80.0-96.0); PLATELET COUNT, AUTOMATED 160 10^3/uL (150-450); RED BLOOD COUNT 3.46 10^6/uL (4.30-6.10); WHITE BLOOD COUNT 4.4 10^3/uL (4.0-10.0)
[2023-05-21] MEDS: IPRATROPIUM 0.5MG/ALBUTEROL 2.5MG INH SOL UD 3ML (DUONEB) NEB SCH ×4 (07:17→19:27)
[2023-05-21] MEDS: ADVAIR HFA 115/21MCG INHALER INH SCH ×2 (07:17→19:27)
[2023-05-21 07:19] LABS: BILIRUBIN,DIRECT 0.7 MG/DL (<0.4); BILIRUBIN,TOTAL 0.9 MG/DL (0.3-1.2); CALCIUM LEVEL 8.7 MG/DL (8.3-10.6); CREATININE FOR GFR 1.37 MG/DL (0.70-1.30); GLOMERULAR FILTRATION RATE 53.2 (>35); MAGNESIUM LEVEL 1.9 MG/DL (1.8-2.4); POTASSIUM SERUM 4.2 MMOL/L (3.5-5.1); TOTAL PROTEIN 6.4 G/DL (5.7-8.2)
[2023-05-21 08:10] LABS: PROCALCITONIN 6.46 ng/ml
[2023-05-21] MEDS: INSULIN LISPRO (NovoLOG) PER UNIT SC SCH ×4 (08:23→21:00)
[2023-05-21] MEDS: ERTAPENEM SODIUM 1 GM in NS MINI-BAG PLUS 50 ML IV SCH (08:33)
[2023-05-21] MEDS: OMEPRAZOLE 20MG CAP PO SCH ×2 (08:33→21:27)
[2023-05-21] MEDS: MAGNESIUM OXIDE 400MG TAB (MAG-OX) PO SCH ×3 (08:33→21:27)
[2023-05-21] MEDS: ENOXAPARIN 40MG/0.4ML SYRINGE (J1650 PER 10MG) SC SCH (08:33)
[2023-05-21] MEDS: ASPIRIN 81MG CHEW TABLET PO SCH (08:33)
[2023-05-21] MEDS: CARVedilol 12.5 MG TAB PO SCH ×2 (08:34→21:26)
[2023-05-21] MEDS ORDERED: VARIBAR PUDDING 40% w/v 230ML TUBE As Ordered ONE (13:25)
[2023-05-21] MEDS ORDERED: E-Z-PAQUE 96% w/w SUSP 176GM BTL As Ordered ONE (13:26)
[2023-05-21] MEDS ORDERED: VARIBAR NECTAR 40% w/v 240ML SUSP BTL As Ordered ONE (13:26)
[2023-05-21 14:00] VITALS: BP 142/53; TEMP 97.9; O2SAT 93
[2023-05-21 21:17] VITALS: BP 160/58; TEMP 98.1; O2SAT 95
[2023-05-21] MEDS: ATORVASTATIN 20 MG TAB PO SCH (21:26)
[2023-05-21] MEDS: traMADol 50 MG TAB PO PRN (21:27)
[2023-05-22] MEDS: ACETAMINOPHEN 500 MG TAB PO PRN ×2 (02:35→21:08)
[2023-05-22 06:10] LABS: HEMATOCRIT 30.7 % (42.0-52.0); HEMOGLOBIN 9.8 g/dl (13.5-17.5); MEAN CORPUSCULAR HEMOGLOBIN 30.3 pg (27.0-33.0); MEAN CORPUSCULAR HGB CONC 31.9 g/dl (32.0-36.5); PLATELET COUNT, AUTOMATED 174 10^3/uL (150-450); RED BLOOD COUNT 3.23 10^6/uL (4.30-6.10); WHITE BLOOD COUNT 4.9 10^3/uL (4.0-10.0)
[2023-05-22 06:16] VITALS: BP 127/49; TEMP 98.1; O2SAT 92
[2023-05-22 06:37] LABS: ALBUMIN 1.9 G/DL (3.2-5.2); BILIRUBIN,DIRECT 0.6 MG/DL (<0.4); BILIRUBIN,TOTAL 0.8 MG/DL (0.3-1.2); CALCIUM LEVEL 8.5 MG/DL (8.3-10.6); CREATININE FOR GFR 1.34 MG/DL (0.70-1.30); GLOMERULAR FILTRATION RATE 54.6 (>35); MAGNESIUM LEVEL 2.1 MG/DL (1.8-2.4); POTASSIUM SERUM 4.2 MMOL/L (3.5-5.1); TOTAL PROTEIN 6.3 G/DL (5.7-8.2)
[2023-05-22] MEDS: IPRATROPIUM 0.5MG/ALBUTEROL 2.5MG INH SOL UD 3ML (DUONEB) NEB SCH ×4 (07:33→19:47)
[2023-05-22] MEDS: ADVAIR HFA 115/21MCG INHALER INH SCH ×2 (07:34→19:47)
[2023-05-22] MEDS: ENOXAPARIN 40MG/0.4ML SYRINGE (J1650 PER 10MG) SC SCH (08:23)
[2023-05-22] MEDS: ERTAPENEM SODIUM 1 GM in NS MINI-BAG PLUS 50 ML IV SCH (08:23)
[2023-05-22] MEDS: INSULIN LISPRO (NovoLOG) PER UNIT SC SCH ×4 (08:24→20:41)
[2023-05-22] MEDS: CARVedilol 12.5 MG TAB PO SCH ×2 (08:24→20:45)
[2023-05-22] MEDS: ASPIRIN 81MG CHEW TABLET PO SCH (08:24)
[2023-05-22] MEDS: MAGNESIUM OXIDE 400MG TAB (MAG-OX) PO SCH ×3 (08:25→20:42)
[2023-05-22] MEDS: OMEPRAZOLE 20MG CAP PO SCH ×2 (08:25→20:45)
[2023-05-22 11:53] LABS: C REACTIVE PROTEIN QUANTITATIV 4.9 MG/DL (<1.0)
[2023-05-22] MEDS ORDERED: LIDOCAINE 1% MDV 20ML VIAL As Ordered ONE (12:10)
[2023-05-22 13:10] LABS: ERYTHROCYTE SEDIMENTATION RATE 130 mm/hr (0-20)
[2023-05-22 14:00] VITALS: BP 156/65; TEMP 98.2; O2SAT 94
[2023-05-22] MEDS: ATORVASTATIN 20 MG TAB PO SCH (20:45)
[2023-05-22] MEDS: traMADol 50 MG TAB PO PRN (20:45)
[2023-05-22 21:00] VITALS: TEMP 101; O2SAT 93
[2023-05-22 22:00] VITALS: BP 135/72
[2023-05-23 02:00] VITALS: TEMP 97.9
[2023-05-23 05:36] VITALS: BP 155/69; TEMP 97.3; O2SAT 94
[2023-05-23 06:39] LABS: HEMATOCRIT 32.5 % (42.0-52.0); HEMOGLOBIN 10.2 g/dl (13.5-17.5); MEAN CORPUSCULAR HEMOGLOBIN 29.8 pg (27.0-33.0); MEAN CORPUSCULAR HGB CONC 31.4 g/dl (32.0-36.5); PLATELET COUNT, AUTOMATED 177 10^3/uL (150-450); RED BLOOD COUNT 3.42 10^6/uL (4.30-6.10); WHITE BLOOD COUNT 5.8 10^3/uL (4.0-10.0)
[2023-05-23 07:13] LABS: ALKALINE PHOSPHATASE 590 U/L (46-116); ALT/SGPT 74 U/L (7.0-40); AST/SGOT 72 U/L (<34); BILIRUBIN,DIRECT 0.8 MG/DL (<0.4); BILIRUBIN,TOTAL 1.1 MG/DL (0.3-1.2); BLOOD UREA NITROGEN 22 MG/DL (9-23); CALCIUM LEVEL 8.8 MG/DL (8.3-10.6); CARBON DIOXIDE LEVEL 26 MMOL/L (20-31); CHLORIDE LEVEL 106 MMOL/L (98-107); GLOMERULAR FILTRATION RATE 56.5 (>35); GLUCOSE, FASTING 117 MG/DL (74-106); MAGNESIUM LEVEL 2.2 MG/DL (1.8-2.4); POTASSIUM SERUM 4.4 MMOL/L (3.5-5.1); SODIUM LEVEL 138 MMOL/L (136-145); TOTAL PROTEIN 6.6 G/DL (5.7-8.2)
[2023-05-23] MEDS: ADVAIR HFA 115/21MCG INHALER INH SCH ×2 (07:20→19:20)
[2023-05-23] MEDS: IPRATROPIUM 0.5MG/ALBUTEROL 2.5MG INH SOL UD 3ML (DUONEB) NEB SCH ×4 (07:20→19:19)
[2023-05-23] MEDS: traMADol 50 MG TAB PO PRN ×2 (07:49→18:44)
[2023-05-23 08:00] VITALS: BP 152/69; TEMP 97.9; O2SAT 94
[2023-05-23] MEDS: INSULIN LISPRO (NovoLOG) PER UNIT SC SCH ×4 (08:19→20:19)
[2023-05-23] MEDS: ENOXAPARIN 40MG/0.4ML SYRINGE (J1650 PER 10MG) SC SCH (08:19)
[2023-05-23] MEDS: MAGNESIUM OXIDE 400MG TAB (MAG-OX) PO SCH ×3 (08:20→20:18)
[2023-05-23] MEDS: CARVedilol 12.5 MG TAB PO SCH ×2 (08:20→20:18)
[2023-05-23] MEDS: ASPIRIN 81MG CHEW TABLET PO SCH (08:21)
[2023-05-23] MEDS: OMEPRAZOLE 20MG CAP PO SCH ×2 (08:21→20:18)
[2023-05-23 08:47] LABS: HEPATITIS B CORE ANTIBODY IGM NEGATIVE (NEGATIVE); HEPATITIS C VIRUS ABY INDEX 0.25 INDEX (<0.8)
[2023-05-23] MEDS: ERTAPENEM SODIUM 1 GM in NS MINI-BAG PLUS 50 ML IV SCH (09:16)
[2023-05-23] MEDS: ACETAMINOPHEN 500 MG TAB PO PRN ×2 (10:28→20:19)
[2023-05-23 12:29] LABS: PROCALCITONIN 1.87 ng/ml
[2023-05-23 13:56] VITALS: BP 115/52; TEMP 97.8; O2SAT 94
[2023-05-23 19:42] VITALS: BP 154/61; TEMP 98.2; O2SAT 95
[2023-05-23] MEDS: ATORVASTATIN 20 MG TAB PO SCH (20:19)
[2023-05-24 05:20] VITALS: BP 155/65; TEMP 98.1; O2SAT 97
[2023-05-24] MEDS ORDERED: SENNA 8.6 MG TAB (SENOKOT) PO PRN (07:05)
[2023-05-24] MEDS ORDERED: MIRALAX *UNIT DOSE* 17GM PACKET PO PRN (07:05)
[2023-05-24 07:16] LABS: HEMATOCRIT 32.6 % (42.0-52.0); HEMOGLOBIN 10.2 g/dl (13.5-17.5); MEAN CORPUSCULAR HEMOGLOBIN 29.9 pg (27.0-33.0); MEAN CORPUSCULAR HGB CONC 31.3 g/dl (32.0-36.5); MEAN CORPUSCULAR VOLUME 95.6 fl (80.0-96.0); PLATELET COUNT, AUTOMATED 189 10^3/uL (150-450); RED BLOOD COUNT 3.41 10^6/uL (4.30-6.10); WHITE BLOOD COUNT 5.2 10^3/uL (4.0-10.0)
[2023-05-24] MEDS: ADVAIR HFA 115/21MCG INHALER INH SCH ×2 (07:26→19:39)
[2023-05-24 07:27] LABS: ERYTHROCYTE SEDIMENTATION RATE > 130 mm/hr (0-20)
[2023-05-24] MEDS: IPRATROPIUM 0.5MG/ALBUTEROL 2.5MG INH SOL UD 3ML (DUONEB) NEB SCH ×4 (07:27→19:39)
[2023-05-24] MEDS: INSULIN LISPRO (NovoLOG) PER UNIT SC SCH ×4 (07:30→19:52)
[2023-05-24 07:43] LABS: C REACTIVE PROTEIN QUANTITATIV 10.3 MG/DL (<1.0)
[2023-05-24 07:44] LABS: ALBUMIN 1.9 G/DL (3.2-5.2); BILIRUBIN,DIRECT 0.7 MG/DL (<0.4); CALCIUM LEVEL 8.6 MG/DL (8.3-10.6); CREATININE FOR GFR 1.35 MG/DL (0.70-1.30); GLOMERULAR FILTRATION RATE 54.1 (>35); MAGNESIUM LEVEL 2.4 MG/DL (1.8-2.4); TOTAL PROTEIN 6.8 G/DL (5.7-8.2)
[2023-05-24] MEDS: METAMUCIL (PSYLLIUM) PACKET PO SCH ×2 (08:32→20:00)
[2023-05-24] MEDS: ENOXAPARIN 40MG/0.4ML SYRINGE (J1650 PER 10MG) SC SCH (08:33)
[2023-05-24] MEDS: ASPIRIN 81MG CHEW TABLET PO SCH (08:33)
[2023-05-24] MEDS: OMEPRAZOLE 20MG CAP PO SCH ×2 (08:33→20:01)
[2023-05-24] MEDS: CARVedilol 12.5 MG TAB PO SCH ×2 (08:34→20:01)
[2023-05-24] MEDS: ERTAPENEM SODIUM 1 GM in NS MINI-BAG PLUS 50 ML IV SCH (09:17)
[2023-05-24] MEDS ORDERED: PROHANCE 279.3MG/ML 5ML VIAL As Ordered ONE (12:12)
[2023-05-24 14:00] VITALS: BP 127/51; TEMP 97.9; O2SAT 94
[2023-05-24] MEDS: ATORVASTATIN 20 MG TAB PO SCH (20:01)
[2023-05-24] MEDS: traMADol 50 MG TAB PO PRN (20:01)
[2023-05-24 22:00] VITALS: BP 163/64; TEMP 97.7; O2SAT 98
[2023-05-25 06:13] VITALS: BP 165/71; TEMP 97.5; O2SAT 93
[2023-05-25 07:00] LABS: BASO % 0.6 % (0.0-1.0); EOS # 0.2 10^3/uL (0.0-0.5); EOS % 3.9 % (0.0-3.0); HEMATOCRIT 32.7 % (42.0-52.0); HEMOGLOBIN 10.3 g/dl (13.5-17.5); LYMPH # 1.9 10^3/uL (1.5-5.0); LYMPH % 34.3 % (24.0-44.0); MEAN CORPUSCULAR HEMOGLOBIN 30.3 pg (27.0-33.0); MEAN CORPUSCULAR HGB CONC 31.5 g/dl (32.0-36.5); MEAN CORPUSCULAR VOLUME 96.2 fl (80.0-96.0); MONO # 0.7 10^3/uL (0.0-0.8); MONO % 13.2 % (2.0-8.0); NEUTROPHILS # 2.6 10^3/uL (1.5-8.5); NEUTROPHILS % 47.6 % (36.0-66.0); PLATELET COUNT, AUTOMATED 217 10^3/uL (150-450); WHITE BLOOD COUNT 5.5 10^3/uL (4.0-10.0)
[2023-05-25] MEDS: IPRATROPIUM 0.5MG/ALBUTEROL 2.5MG INH SOL UD 3ML (DUONEB) NEB SCH ×4 (07:11→19:48)
[2023-05-25] MEDS: ADVAIR HFA 115/21MCG INHALER INH SCH ×2 (07:11→19:48)
[2023-05-25] MEDS: INSULIN LISPRO (NovoLOG) PER UNIT SC SCH ×4 (07:30→21:00)
[2023-05-25 07:31] LABS: ALBUMIN 1.9 G/DL (3.2-5.2); BILIRUBIN,DIRECT 0.7 MG/DL (<0.4); BILIRUBIN,TOTAL 0.9 MG/DL (0.3-1.2); CALCIUM LEVEL 8.7 MG/DL (8.3-10.6); CREATININE FOR GFR 1.45 MG/DL (0.70-1.30); GLOMERULAR FILTRATION RATE 49.9 (>35); POTASSIUM SERUM 4.7 MMOL/L (3.5-5.1); TOTAL PROTEIN 6.7 G/DL (5.7-8.2)
[2023-05-25] MEDS ORDERED: DICLOFENAC EPOLAMINE 1.3% PATCH TOP SCH (08:10)
[2023-05-25] MEDS: ENOXAPARIN 40MG/0.4ML SYRINGE (J1650 PER 10MG) SC SCH (08:56)
[2023-05-25] MEDS: METAMUCIL (PSYLLIUM) PACKET PO SCH ×2 (08:56→21:04)
[2023-05-25] MEDS: OMEPRAZOLE 20MG CAP PO SCH ×2 (08:56→21:03)
[2023-05-25] MEDS: ASPIRIN 81MG CHEW TABLET PO SCH (08:56)
[2023-05-25] MEDS: LR 1,000 ML IV SCH ×2 (08:56→17:27)
[2023-05-25] MEDS: LIDOCAINE 5% (LIDODERM) PATCH TD SCH (08:56)
[2023-05-25] MEDS: ERTAPENEM SODIUM 1 GM in NS MINI-BAG PLUS 50 ML IV SCH (08:56)
[2023-05-25] MEDS: CARVedilol 12.5 MG TAB PO SCH ×2 (08:57→21:03)
[2023-05-25] MEDS: KETOCONAZOLE 2% CREAM TOP SCH ×2 (10:08→21:11)
[2023-05-25] MEDS ORDERED: ISOVUE-370 76% 100ML VIAL As Ordered ONE (10:52)
[2023-05-25 14:00] VITALS: BP 169/77; TEMP 98.6; O2SAT 95
[2023-05-25] MEDS: ATORVASTATIN 20 MG TAB PO SCH (21:04)
[2023-05-25] MEDS: DICLOFENAC EPOLAMINE 1.3% PATCH TOP SCH (21:11)
[2023-05-25 21:21] VITALS: BP 167/60; TEMP 99; O2SAT 96
[2023-05-26 06:25] LABS: BASO % 0.7 % (0.0-1.0); EOS # 0.2 10^3/uL (0.0-0.5); HEMATOCRIT 32.4 % (42.0-52.0); HEMOGLOBIN 10.1 g/dl (13.5-17.5); LYMPH # 1.7 10^3/uL (1.5-5.0); LYMPH % 38.7 % (24.0-44.0); MEAN CORPUSCULAR HEMOGLOBIN 29.7 pg (27.0-33.0); MEAN CORPUSCULAR HGB CONC 31.2 g/dl (32.0-36.5); MEAN CORPUSCULAR VOLUME 95.3 fl (80.0-96.0); MONO # 0.6 10^3/uL (0.0-0.8); NEUTROPHILS # 1.9 10^3/uL (1.5-8.5); NEUTROPHILS % 43.4 % (36.0-66.0); PLATELET COUNT, AUTOMATED 210 10^3/uL (150-450); WHITE BLOOD COUNT 4.5 10^3/uL (4.0-10.0)
[2023-05-26 06:46] LABS: C REACTIVE PROTEIN QUANTITATIV 5.7 MG/DL (<1.0)
[2023-05-26 06:48] LABS: CALCIUM LEVEL 8.4 MG/DL (8.3-10.6); CREATININE FOR GFR 1.27 MG/DL (0.70-1.30); GLOMERULAR FILTRATION RATE 58.1 (>35); POTASSIUM SERUM 4.5 MMOL/L (3.5-5.1)
[2023-05-26 07:01] LABS: ERYTHROCYTE SEDIMENTATION RATE > 130 mm/hr (0-20)
[2023-05-26] MEDS: ADVAIR HFA 115/21MCG INHALER INH SCH ×2 (07:08→20:50)
[2023-05-26] MEDS: IPRATROPIUM 0.5MG/ALBUTEROL 2.5MG INH SOL UD 3ML (DUONEB) NEB SCH ×4 (07:08→20:50)
[2023-05-26 08:00] VITALS: BP 176/71; TEMP 99.5; O2SAT 95
[2023-05-26 08:15] VITALS: BP 150/62
[2023-05-26] MEDS: DICLOFENAC EPOLAMINE 1.3% PATCH TOP SCH ×2 (09:00→21:00)
[2023-05-26] MEDS: LIDOCAINE 5% (LIDODERM) PATCH TD SCH (09:00)
[2023-05-26] MEDS: INSULIN LISPRO (NovoLOG) PER UNIT SC SCH ×4 (09:00→21:00)
[2023-05-26] MEDS: CARVedilol 12.5 MG TAB PO SCH ×3 (09:00→21:00)
[2023-05-26] MEDS: METAMUCIL (PSYLLIUM) PACKET PO SCH ×2 (09:01→20:57)
[2023-05-26] MEDS: ENOXAPARIN 40MG/0.4ML SYRINGE (J1650 PER 10MG) SC SCH (09:01)
[2023-05-26] MEDS: KETOCONAZOLE 2% CREAM TOP SCH ×2 (09:01→21:02)
[2023-05-26] MEDS: ASPIRIN 81MG CHEW TABLET PO SCH (09:02)
[2023-05-26] MEDS: OMEPRAZOLE 20MG CAP PO SCH ×2 (09:10→20:57)
[2023-05-26] MEDS: ERTAPENEM SODIUM 1 GM in NS MINI-BAG PLUS 50 ML IV SCH (09:10)
[2023-05-26 14:30] VITALS: BP 122/62; TEMP 98.6; O2SAT 95
[2023-05-26] MEDS: ATORVASTATIN 20 MG TAB PO SCH (20:57)
[2023-05-26 21:00] VITALS: BP 138/56; TEMP 97.9; O2SAT 92
[2023-05-27 05:47] VITALS: BP 160/70; TEMP 98.6; O2SAT 94
[2023-05-27 06:09] LABS: BASO % 0.6 % (0.0-1.0); EOS # 0.3 10^3/uL (0.0-0.5); EOS % 5.1 % (0.0-3.0); LYMPH # 1.7 10^3/uL (1.5-5.0); LYMPH % 34.4 % (24.0-44.0); MEAN CORPUSCULAR HEMOGLOBIN 30.1 pg (27.0-33.0); MEAN CORPUSCULAR HGB CONC 31.3 g/dl (32.0-36.5); MEAN CORPUSCULAR VOLUME 96.4 fl (80.0-96.0); MONO # 0.7 10^3/uL (0.0-0.8); MONO % 14.1 % (2.0-8.0); NEUTROPHILS # 2.2 10^3/uL (1.5-8.5); NEUTROPHILS % 45.6 % (36.0-66.0); PLATELET COUNT, AUTOMATED 209 10^3/uL (150-450); RED BLOOD COUNT 3.32 10^6/uL (4.30-6.10); WHITE BLOOD COUNT 4.9 10^3/uL (4.0-10.0)
[2023-05-27 06:38] LABS: CALCIUM LEVEL 8.4 MG/DL (8.3-10.6); CREATININE FOR GFR 1.58 MG/DL (0.70-1.30); GLOMERULAR FILTRATION RATE 45.1 (>35); POTASSIUM SERUM 4.9 MMOL/L (3.5-5.1)
[2023-05-27] MEDS: IPRATROPIUM 0.5MG/ALBUTEROL 2.5MG INH SOL UD 3ML (DUONEB) NEB SCH (07:34)
[2023-05-27] MEDS: ADVAIR HFA 115/21MCG INHALER INH SCH ×2 (07:34→19:44)
[2023-05-27] MEDS: METAMUCIL (PSYLLIUM) PACKET PO SCH ×2 (08:47→20:03)
[2023-05-27] MEDS: LIDOCAINE 5% (LIDODERM) PATCH TD SCH (08:48)
[2023-05-27] MEDS: ASPIRIN 81MG CHEW TABLET PO SCH (08:48)
[2023-05-27] MEDS: ENOXAPARIN 40MG/0.4ML SYRINGE (J1650 PER 10MG) SC SCH (08:48)
[2023-05-27] MEDS: DICLOFENAC EPOLAMINE 1.3% PATCH TOP SCH ×2 (08:48→20:03)
[2023-05-27] MEDS: KETOCONAZOLE 2% CREAM TOP SCH ×2 (08:48→20:04)
[2023-05-27] MEDS: OMEPRAZOLE 20MG CAP PO SCH ×2 (08:48→20:04)
[2023-05-27] MEDS: CARVedilol 12.5 MG TAB PO SCH ×2 (08:49→20:03)
[2023-05-27] MEDS: ERTAPENEM SODIUM 1 GM in NS MINI-BAG PLUS 50 ML IV SCH (08:50)
[2023-05-27] MEDS: INSULIN LISPRO (NovoLOG) PER UNIT SC SCH ×4 (09:36→21:00)
[2023-05-27] MEDS ORDERED: IPRATROPIUM 0.5MG/ALBUTEROL 2.5MG INH SOL UD 3ML (DUONEB) NEB PRN (10:15)
[2023-05-27 14:00] VITALS: BP 110/58; TEMP 97.9; O2SAT 95
[2023-05-27] MEDS: ATORVASTATIN 20 MG TAB PO SCH (20:04)
[2023-05-27 21:00] VITALS: BP 155/59; TEMP 99.3; O2SAT 95
[2023-05-28 05:00] VITALS: BP 158/81; TEMP 99.1; O2SAT 94
[2023-05-28] MEDS: ADVAIR HFA 115/21MCG INHALER INH SCH ×2 (07:19→19:22)
[2023-05-28 07:29] LABS: BASO % 0.7 % (0.0-1.0); EOS # 0.2 10^3/uL (0.0-0.5); EOS % 4.6 % (0.0-3.0); HEMATOCRIT 31.1 % (42.0-52.0); HEMOGLOBIN 9.6 g/dl (13.5-17.5); LYMPH # 1.5 10^3/uL (1.5-5.0); LYMPH % 31.9 % (24.0-44.0); MEAN CORPUSCULAR HEMOGLOBIN 29.9 pg (27.0-33.0); MEAN CORPUSCULAR HGB CONC 30.9 g/dl (32.0-36.5); MEAN CORPUSCULAR VOLUME 96.9 fl (80.0-96.0); MONO # 0.6 10^3/uL (0.0-0.8); MONO % 13.6 % (2.0-8.0); NEUTROPHILS # 2.2 10^3/uL (1.5-8.5); NEUTROPHILS % 48.8 % (36.0-66.0); PLATELET COUNT, AUTOMATED 201 10^3/uL (150-450); RED BLOOD COUNT 3.21 10^6/uL (4.30-6.10); WHITE BLOOD COUNT 4.6 10^3/uL (4.0-10.0)
[2023-05-28 07:54] LABS: ERYTHROCYTE SEDIMENTATION RATE 55 mm/hr (0-20)
[2023-05-28 08:23] LABS: C REACTIVE PROTEIN QUANTITATIV 3.1 MG/DL (<1.0)
[2023-05-28 08:26] LABS: ALBUMIN 1.9 G/DL (3.2-5.2); BILIRUBIN,TOTAL 0.8 MG/DL (0.3-1.2); CALCIUM LEVEL 8.2 MG/DL (8.3-10.6); CREATININE FOR GFR 1.51 MG/DL (0.70-1.30); GLOMERULAR FILTRATION RATE 47.6 (>35); POTASSIUM SERUM 4.8 MMOL/L (3.5-5.1); TOTAL PROTEIN 6.3 G/DL (5.7-8.2)
[2023-05-28] MEDS: METAMUCIL (PSYLLIUM) PACKET PO SCH ×2 (09:00→21:35)
[2023-05-28] MEDS: ENOXAPARIN 40MG/0.4ML SYRINGE (J1650 PER 10MG) SC SCH (09:14)
[2023-05-28] MEDS: LIDOCAINE 5% (LIDODERM) PATCH TD SCH (09:14)
[2023-05-28] MEDS: DICLOFENAC EPOLAMINE 1.3% PATCH TOP SCH ×2 (09:14→21:37)
[2023-05-28] MEDS: INSULIN LISPRO (NovoLOG) PER UNIT SC SCH ×4 (09:15→21:00)
[2023-05-28] MEDS: OMEPRAZOLE 20MG CAP PO SCH ×2 (09:15→21:35)
[2023-05-28] MEDS: ERTAPENEM SODIUM 1 GM in NS MINI-BAG PLUS 50 ML IV SCH (09:15)
[2023-05-28] MEDS: ASPIRIN 81MG CHEW TABLET PO SCH (09:15)
[2023-05-28] MEDS: KETOCONAZOLE 2% CREAM TOP SCH ×2 (09:16→21:37)
[2023-05-28] MEDS: CARVedilol 12.5 MG TAB PO SCH ×2 (09:16→21:36)
[2023-05-28 14:00] VITALS: BP 107/72; TEMP 98.2; O2SAT 97
[2023-05-28] MEDS: ATORVASTATIN 20 MG TAB PO SCH (21:37)
[2023-05-29 06:40] VITALS: BP 173/55; TEMP 99.3; O2SAT 98
[2023-05-29 06:49] LABS: BASO % 0.8 % (0.0-1.0); EOS # 0.2 10^3/uL (0.0-0.5); EOS % 4.2 % (0.0-3.0); HEMATOCRIT 33.2 % (42.0-52.0); HEMOGLOBIN 10.2 g/dl (13.5-17.5); LYMPH # 1.1 10^3/uL (1.5-5.0); LYMPH % 21.4 % (24.0-44.0); MEAN CORPUSCULAR HEMOGLOBIN 29.6 pg (27.0-33.0); MEAN CORPUSCULAR HGB CONC 30.7 g/dl (32.0-36.5); MEAN CORPUSCULAR VOLUME 96.2 fl (80.0-96.0); MONO # 0.6 10^3/uL (0.0-0.8); NEUTROPHILS # 3.1 10^3/uL (1.5-8.5); NEUTROPHILS % 61.2 % (36.0-66.0); PLATELET COUNT, AUTOMATED 209 10^3/uL (150-450); RED BLOOD COUNT 3.45 10^6/uL (4.30-6.10)
[2023-05-29 07:23] LABS: CALCIUM LEVEL 8.3 MG/DL (8.3-10.6); CREATININE FOR GFR 1.38 MG/DL (0.70-1.30); GLOMERULAR FILTRATION RATE 52.8 (>35); POTASSIUM SERUM 5.4 MMOL/L (3.5-5.1)
[2023-05-29] MEDS: INSULIN LISPRO (NovoLOG) PER UNIT SC SCH ×4 (07:30→21:00)
[2023-05-29] MEDS: ADVAIR HFA 115/21MCG INHALER INH SCH ×2 (07:34→20:14)
[2023-05-29] MEDS: ASPIRIN 81MG CHEW TABLET PO SCH (08:58)
[2023-05-29] MEDS: CARVedilol 12.5 MG TAB PO SCH ×2 (08:58→20:17)
[2023-05-29] MEDS: OMEPRAZOLE 20MG CAP PO SCH ×2 (08:58→20:14)
[2023-05-29] MEDS: METAMUCIL (PSYLLIUM) PACKET PO SCH ×2 (08:58→20:12)
[2023-05-29] MEDS: ERTAPENEM SODIUM 1 GM in NS MINI-BAG PLUS 50 ML IV SCH (08:59)
[2023-05-29] MEDS: DICLOFENAC EPOLAMINE 1.3% PATCH TOP SCH ×2 (08:59→20:14)
[2023-05-29] MEDS: ENOXAPARIN 40MG/0.4ML SYRINGE (J1650 PER 10MG) SC SCH (08:59)
[2023-05-29] MEDS: LIDOCAINE 5% (LIDODERM) PATCH TD SCH (08:59)
[2023-05-29] MEDS: KETOCONAZOLE 2% CREAM TOP SCH ×2 (08:59→20:15)
[2023-05-29] MEDS: IPRATROPIUM 0.5MG/ALBUTEROL 2.5MG INH SOL UD 3ML (DUONEB) NEB SCH ×4 (10:20→23:56)
[2023-05-29] MEDS ORDERED: HumuLIN R (REGULAR) INSULIN (NovoLIN R) **100U/ML** PER UNIT IV STA (10:52)
[2023-05-29] MEDS ORDERED: DEXTROSE 50% 50ML SYRINGE IV STA (10:52)
[2023-05-29] MEDS ORDERED: ALBUTEROL SULFATE 2.5MG/0.5ML INH NEB SOLN NEB ONE (10:55)
[2023-05-29 11:10] VITALS: O2SAT 94
[2023-05-29 14:00] VITALS: BP 165/58; TEMP 101.5; O2SAT 93
[2023-05-29 16:15] VITALS: O2SAT 93
[2023-05-29] MEDS: ACETAMINOPHEN 500 MG TAB PO PRN (16:21)
[2023-05-29 18:00] VITALS: TEMP 100.4
[2023-05-29] MEDS: ATORVASTATIN 20 MG TAB PO SCH (20:14)
[2023-05-29 21:28] VITALS: BP 151/59; TEMP 98.8; O2SAT 94
[2023-05-30 05:22] VITALS: BP 156/61; TEMP 97.7; O2SAT 94
[2023-05-30 06:33] LABS: BASO % 0.7 % (0.0-1.0); EOS # 0.1 10^3/uL (0.0-0.5); EOS % 2.4 % (0.0-3.0); HEMATOCRIT 33.1 % (42.0-52.0); HEMOGLOBIN 10.1 g/dl (13.5-17.5); LYMPH # 1.2 10^3/uL (1.5-5.0); LYMPH % 27.9 % (24.0-44.0); MEAN CORPUSCULAR HEMOGLOBIN 29.4 pg (27.0-33.0); MEAN CORPUSCULAR HGB CONC 30.5 g/dl (32.0-36.5); MEAN CORPUSCULAR VOLUME 96.5 fl (80.0-96.0); MONO # 0.8 10^3/uL (0.0-0.8); MONO % 18.8 % (2.0-8.0); NEUTROPHILS # 2.1 10^3/uL (1.5-8.5); NEUTROPHILS % 50.2 % (36.0-66.0); PLATELET COUNT, AUTOMATED 189 10^3/uL (150-450); RED BLOOD COUNT 3.43 10^6/uL (4.30-6.10); WHITE BLOOD COUNT 4.2 10^3/uL (4.0-10.0)
[2023-05-30] MEDS: IPRATROPIUM 0.5MG/ALBUTEROL 2.5MG INH SOL UD 3ML (DUONEB) NEB SCH (07:13)
[2023-05-30] MEDS: ADVAIR HFA 115/21MCG INHALER INH SCH (07:13)
[2023-05-30 07:14] LABS: C REACTIVE PROTEIN QUANTITATIV 5.7 MG/DL (<1.0)
[2023-05-30 07:15] LABS: CALCIUM LEVEL 8.6 MG/DL (8.3-10.6); CREATININE FOR GFR 1.34 MG/DL (0.70-1.30); GLOMERULAR FILTRATION RATE 54.6 (>35); POTASSIUM SERUM 4.6 MMOL/L (3.5-5.1)
[2023-05-30 07:39] LABS: ERYTHROCYTE SEDIMENTATION RATE 127 mm/hr (0-20)
[2023-05-30] MEDS: INSULIN LISPRO (NovoLOG) PER UNIT SC SCH ×2 (07:50→12:32)
[2023-05-30 09:07] VITALS: BP 169/62
[2023-05-30] MEDS: ENOXAPARIN 40MG/0.4ML SYRINGE (J1650 PER 10MG) SC SCH ×2 (09:07→09:31)
[2023-05-30] MEDS: LIDOCAINE 5% (LIDODERM) PATCH TD SCH (09:07)
[2023-05-30] MEDS: CARVedilol 12.5 MG TAB PO SCH (09:07)
[2023-05-30] MEDS: METAMUCIL (PSYLLIUM) PACKET PO SCH (09:07)
[2023-05-30] MEDS: ASPIRIN 81MG CHEW TABLET PO SCH (09:07)
[2023-05-30] MEDS: OMEPRAZOLE 20MG CAP PO SCH (09:07)
[2023-05-30] MEDS: KETOCONAZOLE 2% CREAM TOP SCH (09:08)
[2023-05-30] MEDS: ERTAPENEM SODIUM 1 GM in NS MINI-BAG PLUS 50 ML IV SCH (09:30)
[2023-05-30] MEDS: DICLOFENAC EPOLAMINE 1.3% PATCH TOP SCH (09:57)
[2023-05-30 14:00] VITALS: BP 132/50; TEMP 97.7; O2SAT 96
== END 2023-05-30 15:11 | disposition short-term general hospital (02) | DRG 871 ==
LOC: M ED 02:04 → OBSVTOIN 14:57 → M ED INP 14:57 → EEVIPCON 14:57 → ENRESERV 15:24 → M MSPAV 18:42
PROVIDERS: ADMIT Family Medicine; ATTEND Student in an Organized Health Care Education/Training Program
DX: A41.51 Sepsis due to Escherichia coli [E. coli] (principal); G93.41 Metabolic encephalopathy; N39.0 Urinary tract infection, site not specified; N17.9 Acute kidney failure, unspecified; N18.30 Chronic kidney disease, stage 3 unspecified; K21.9 Gastro-esophageal reflux disease without esophagitis; J44.9 Chronic obstructive pulmonary disease, unspecified; G47.33 Obstructive sleep apnea (adult) (pediatric); I12.9 Hypertensive chronic kidney disease with stage 1 through stage 4 chronic kidney disease, or unspecified chronic kidney disease; E11.40 Type 2 diabetes mellitus with diabetic neuropathy, unspecified; F03.90 Unspecified dementia, unspecified severity, without behavioral disturbance, psychotic disturbance, mood disturbance, and anxiety; E11.22 Type 2 diabetes mellitus with diabetic chronic kidney disease; I71.43 Infrarenal abdominal aortic aneurysm, without rupture; D63.1 Anemia in chronic kidney disease; R13.10 Dysphagia, unspecified; B96.20 Unspecified Escherichia coli [E. coli] as the cause of diseases classified elsewhere; M25.512 Pain in left shoulder; E78.5 Hyperlipidemia, unspecified; R94.5 Abnormal results of liver function studies; K76.89 Other specified diseases of liver; R74.01 Elevation of levels of liver transaminase levels; E61.1 Iron deficiency; Z79.899 Other long term (current) drug therapy; Z87.891 Personal history of nicotine dependence; Z79.82 Long term (current) use of aspirin

== ENCOUNTER → 2023-07-02 | Outpatient (REF) | payer MEDICARE, MEDICAID ==
[~2023-07-02] MED LIST changes: +ACET1TAB55 PO; +ACET65SU PR; +AMLO1TAB25 PO; +ASPI81CH8 PO; +ATOR1TAB21 PO; +BENG1CRE TOP; +BISA10SU PR; +BREO1INH INH; +FLEEENE12 PR; +JUVE1POW PO; +LASI20TA3 PO; +MEDIPAD6 TOP; +MOM30SS2 PO; +OMEP-173 PO; +ONDA-83 PO; +VITMTA PO
[2023-07-02 10:35] LABS: HEMATOCRIT 35.2 % (42.0-52.0); HEMOGLOBIN 11.3 g/dl (13.5-17.5); MEAN CORPUSCULAR HEMOGLOBIN 31.3 pg (27.0-33.0); MEAN CORPUSCULAR HGB CONC 32.1 g/dl (32.0-36.5); MEAN CORPUSCULAR VOLUME 97.5 fl (80.0-96.0); PLATELET COUNT, AUTOMATED 194 10^3/uL (150-450); RED BLOOD COUNT 3.61 10^6/uL (4.30-6.10); WHITE BLOOD COUNT 5.7 10^3/uL (4.0-10.0)
== END ==
LOC: SKLAB7 07:00
PROVIDERS: ATTEND Internal Medicine
DX: E11.9 Type 2 diabetes mellitus without complications (principal); E78.5 Hyperlipidemia, unspecified; I50.9 Heart failure, unspecified

== ENCOUNTER → 2023-07-20 | Outpatient (CLI) | payer MEDICARE, MEDICAID ==
[2023-07-20 07:34] LABS: HEMATOCRIT 35.8 % (42.0-52.0); HEMOGLOBIN 11.4 g/dl (13.5-17.5); MEAN CORPUSCULAR HGB CONC 31.8 g/dl (32.0-36.5); MEAN CORPUSCULAR VOLUME 97.3 fl (80.0-96.0); PLATELET COUNT, AUTOMATED 202 10^3/uL (150-450); RED BLOOD COUNT 3.68 10^6/uL (4.30-6.10); WHITE BLOOD COUNT 5.2 10^3/uL (4.0-10.0)
[2023-07-20 08:08] LABS: HEMOGLOBIN A1c 5.8 % (4.0-6.0)
[2023-07-20 08:09] LABS: ALBUMIN 2.4 G/DL (3.2-5.2); ALKALINE PHOSPHATASE 506 U/L (46-116); ALT/SGPT 78 U/L (7.0-40); AST/SGOT 72 U/L (<34); BILIRUBIN,TOTAL 0.9 MG/DL (0.3-1.2); BLOOD UREA NITROGEN 30 MG/DL (9-23); CALCIUM LEVEL 8.8 MG/DL (8.3-10.6); CARBON DIOXIDE LEVEL 23 MMOL/L (20-31); CHLORIDE LEVEL 107 MMOL/L (98-107); CHOLESTEROL LEVEL 152 MG/DL (<200); CHOLESTEROL RISK RATIO 2.42 (<5); CREATININE FOR GFR 1.16 MG/DL (0.70-1.30); GLOMERULAR FILTRATION RATE > 60.0 (>35); GLUCOSE, FASTING 117 MG/DL (74-106); HDL CHOLESTEROL 62.6 MG/DL (>40); LDL CHOLESTEROL 70.4 MG/DL (<100); NON-HDL-C 89.4 MG/DL; POTASSIUM SERUM 4.4 MMOL/L (3.5-5.1); SODIUM LEVEL 141 MMOL/L (136-145); TOTAL PROTEIN 6.8 G/DL (5.7-8.2); TRIGLYCERIDES LEVEL 95 MG/DL (<150)
== END ==
LOC: SKLAB7 06:18
PROVIDERS: ATTEND Internal Medicine
DX: N18.9 Chronic kidney disease, unspecified (principal); E11.9 Type 2 diabetes mellitus without complications

== ENCOUNTER 2023-10-15 10:53 | Emergency (ER) | payer MEDICARE, MEDICAID ==
[~2023-10-15] VITALS: Ht 167.6 cm; Wt 84.1 kg
[2023-10-15] MEDS ORDERED: FLUT1BLS16 (11:07)
[2023-10-15] MEDS ORDERED: INSU100I48 (11:07)
[2023-10-15] MEDS ORDERED: methylPREDNISolone 125MG 2ML VIAL IV ONE (11:20)
[2023-10-15] MEDS: IPRATROPIUM 0.5MG/ALBUTEROL 2.5MG INH SOL UD 3ML (DUONEB) NEB PRN ×3 (11:52→12:14)
[2023-10-15 11:55] LABS: VENOUS BASE EXCESS -4.5 (-2.0-2.0); VENOUS HCO3 21.7 MMOL/L (23.0-27.0); VENOUS PARTIAL PRESSURE CO2 44.7 mmHg (38.0-50.0); VENOUS PH 7.305 UNITS (7.330-7.430); VENOUS STANDARD HCO3 20.3 MMOL/L; VENOUS TOTAL CO2 23.1 MMOL/L (24.0-28.0)
[2023-10-15 12:12] LABS: BASO % 0.6 % (0.0-1.0); EOS # 0.2 10^3/uL (0.0-0.5); EOS % 3.7 % (0.0-3.0); HEMATOCRIT 36.9 % (42.0-52.0); HEMOGLOBIN 11.6 g/dl (13.5-17.5); LYMPH # 1.3 10^3/uL (1.5-5.0); MEAN CORPUSCULAR HEMOGLOBIN 30.9 pg (27.0-33.0); MEAN CORPUSCULAR HGB CONC 31.4 g/dl (32.0-36.5); MEAN CORPUSCULAR VOLUME 98.4 fl (80.0-96.0); MONO # 0.7 10^3/uL (0.0-0.8); MONO % 13.1 % (2.0-8.0); NEUTROPHILS # 2.9 10^3/uL (1.5-8.5); NEUTROPHILS % 56.4 % (36.0-66.0); PLATELET COUNT, AUTOMATED 166 10^3/uL (150-450); RED BLOOD COUNT 3.75 10^6/uL (4.30-6.10); WHITE BLOOD COUNT 5.1 10^3/uL (4.0-10.0)
[2023-10-15 12:32] LABS: ALBUMIN 2.6 G/DL (3.2-5.2); BILIRUBIN,DIRECT 0.5 MG/DL (<0.4); BILIRUBIN,TOTAL 0.7 MG/DL (0.3-1.2); CALCIUM LEVEL 8.8 MG/DL (8.3-10.6); CREATININE FOR GFR 1.48 MG/DL (0.70-1.30); GLOMERULAR FILTRATION RATE 48.6 (>35); POTASSIUM SERUM 4.5 MMOL/L (3.5-5.1); TOTAL PROTEIN 7.1 G/DL (5.7-8.2)
[2023-10-15 12:34] LABS: THYROID STIMULATING HORMONE 1.765 uIU/ML (0.55-4.78)
[2023-10-15] MEDS ORDERED: NS 500 ML IV ONE (12:40)
[2023-10-15] MEDS ORDERED: PRED20TA PO (13:21)
[2023-10-15] MEDS ORDERED: ALBU8.5H INH (13:23)
[2023-10-15] MEDS ORDERED: ALBU2.5V10 NEB (13:23)
[2023-10-15] MEDS ORDERED: NEBU1EAC78 MC (13:24)
[2023-10-15 14:15] VITALS: BP 156/81; TEMP 97.9; O2SAT 94
== END 2023-10-15 14:15 | disposition home or self-care (01) ==
LOC: M ED 10:53
DX: J06.9 Acute upper respiratory infection, unspecified (principal); J44.1 Chronic obstructive pulmonary disease with (acute) exacerbation; B34.8 Other viral infections of unspecified site; B34.1 Enterovirus infection, unspecified; E11.9 Type 2 diabetes mellitus without complications; I10 Essential (primary) hypertension; N18.9 Chronic kidney disease, unspecified; G47.33 Obstructive sleep apnea (adult) (pediatric); E78.5 Hyperlipidemia, unspecified; Z79.4 Long term (current) use of insulin; Z79.899 Other long term (current) drug therapy
CPT/HCPCS: 71045; 80048; 80076; 82803; 83605; 83880; 84443; 85025; 87040; 87486; 87581; 87633; 87798; 93005; 93041; 94640; 94760; 96361; 96374; 99285; J2930

== ENCOUNTER 2023-11-09 10:53 | Inpatient (IN) | payer MEDICARE, MEDICAID ==
[~2023-11-09] VITALS: Ht 167.6 cm; Wt 75.9 kg
[~2023-11-09 10:53] MED LIST changes: +ALBU2.5V10 NEB; +ALBU8.5H INH; +FLUT1BLS16; +INSU100I48 SC; +NEBU1EAC78 MC; +PRED20TA PO
[2023-11-09] MEDS: NS 1,000 ML IV ONE ×2 (11:09→15:03)
[2023-11-09] MEDS: ALBUTEROL SULFATE 2.5MG/0.5ML INH NEB SOLN INH ONE (11:28)
[2023-11-09] MEDS: IPRATROPIUM 0.5MG/ALBUTEROL 2.5MG INH SOL UD 3ML (DUONEB) NEB ONE (11:28)
[2023-11-09 11:29] LABS: BASO % 0.1 % (0.0-1.0); EOS % 0.1 % (0.0-3.0); HEMATOCRIT 38.3 % (42.0-52.0); HEMOGLOBIN 12.5 g/dl (13.5-17.5); LYMPH # 0.5 10^3/uL (1.5-5.0); LYMPH % 5.6 % (24.0-44.0); MEAN CORPUSCULAR HEMOGLOBIN 31.7 pg (27.0-33.0); MEAN CORPUSCULAR HGB CONC 32.6 g/dl (32.0-36.5); MEAN CORPUSCULAR VOLUME 97.2 fl (80.0-96.0); MONO # 0.6 10^3/uL (0.0-0.8); MONO % 6.6 % (2.0-8.0); NEUTROPHILS # 8.3 10^3/uL (1.5-8.5); NEUTROPHILS % 86.8 % (36.0-66.0); PLATELET COUNT, AUTOMATED 146 10^3/uL (150-450); RED BLOOD COUNT 3.94 10^6/uL (4.30-6.10); WHITE BLOOD COUNT 9.5 10^3/uL (4.0-10.0)
[2023-11-09 11:32] LABS: ABG BASE EXCESS -2.2 (-2.0-2.0); ABG HCO3 21.3 MMOL/L (22.0-26.0); ABG PARTIAL PRESSURE CO2 32.7 mmHg (35.0-45.0); ABG PARTIAL PRESSURE O2 77.6 mmHg (75.0-100.0); ABG STANDARD HCO3 22.6 MMOL/L. (22.0-26.0); ABG TOTAL CO2 22.3 MMOL/L (23.0-31.0); ABG pH (ARTERIAL) 7.432 UNITS (7.350-7.450)
[2023-11-09 12:00] LABS: AMYLASE 129 U/L (30-118)
[2023-11-09 12:01] LABS: ALBUMIN 2.4 G/DL (3.2-5.2); ALKALINE PHOSPHATASE 789 U/L (46-116); ALT/SGPT 126 U/L (7.0-40); AST/SGOT 107 U/L (<34); BILIRUBIN,DIRECT 1.3 MG/DL (<0.4); BILIRUBIN,TOTAL 1.8 MG/DL (0.3-1.2); BLOOD UREA NITROGEN 27 MG/DL (9-23); CALCIUM LEVEL 8.3 MG/DL (8.3-10.6); CARBON DIOXIDE LEVEL 23 MMOL/L (20-31); CHLORIDE LEVEL 109 MMOL/L (98-107); CK-MB VALUE MASS < 1.0 NG/ML (<3.6); GLOMERULAR FILTRATION RATE 41.4 (>35); GLUCOSE, FASTING 83 MG/DL (74-106); POTASSIUM SERUM 4.1 MMOL/L (3.5-5.1); SODIUM LEVEL 141 MMOL/L (136-145); TOTAL PROTEIN 6.5 G/DL (5.7-8.2)
[2023-11-09] MEDS: PIPERACILLIN/TAZOBACTAM SOD 4.5 GM in D5W MINI-BAG PLUS 50 ML IV ONE (12:13)
[2023-11-09] MEDS: methylPREDNISolone 125MG 2ML VIAL IV ONE (12:14)
[2023-11-09 12:17] LABS: PROCALCITONIN 6.53 ng/ml
[2023-11-09 12:18] LABS: CPK CREATINE PHOSPHOKINASE 34 U/L (46-171); MB/CK RELATIVE INDEX 2.94 (< OR =4)
[2023-11-09 12:54] LABS: APPEARANCE, URINE CLOUDY (CLEAR); BACTERIA, URINE AUTO 3+ (NEGATIVE); BILIRUBIN, URINE AUTO NEGATIVE (NEGATIVE); BLOOD, URINE BLOOD 3+ (NEGATIVE); COLOR, URINE AMBER (YELLOW); GLUCOSE, URINE (UA) AUTO NEGATIVE (NEGATIVE); KETONE, URINE AUTO NEGATIVE (NEGATIVE); LEUKOCYTE ESTERASE, URINE AUTO 2+ (NEGATIVE); MUCUS, URINE SMALL (NEGATIVE); NITRITE, URINE AUTO NEGATIVE (NEGATIVE); PROTEIN, URINE AUTO 3+ mg/dL (NEGATIVE); RBC, URINE AUTO TNTC /HPF (0-3); SPECIFIC GRAVITY URINE AUTO 1.015 (1.002-1.035); SQUAMOUS EPITHELIAL CELL UR AU 5 /HPF (0-6); WBC, URINE AUTO TNTC /HPF (0-3)
[2023-11-09 13:16] LABS: CK-MB VALUE MASS < 1.0 NG/ML (<3.6)
[2023-11-09] MEDS ORDERED: ASPI81TA26 PO (13:30)
[2023-11-09] MEDS ORDERED: AMLO1TAB25 PO (13:30)
[2023-11-09] MEDS ORDERED: MULT-40 PO (13:30)
[2023-11-09 13:34] LABS: INR 1.36; PARTIAL THROMBOPLASTIN TIME 31.7 SECONDS (24.8-34.2); PROTHROMBIN TIME 16.4 SECONDS (12.5-14.5)
[2023-11-09] MEDS ORDERED: HOME MED LIST COMPLETE! XX SCH (13:40)
[2023-11-09 13:58] LABS: CPK CREATINE PHOSPHOKINASE 42 U/L (46-171); MB/CK RELATIVE INDEX 2.38 (< OR =4)
[2023-11-09] MEDS: LORazepam 2 MG/ML 1ML VIAL IV STA (16:30)
[2023-11-09] MEDS ORDERED: GLUCAGON INJ 1MG VIAL SC PRN (16:45)
[2023-11-09] MEDS ORDERED: GLUCOSE 4GM CHEW TABLET PO PRN (16:45)
[2023-11-09] MEDS ORDERED: DEXTROSE 50% 50ML SYRINGE IV PRN (16:45)
[2023-11-09] MEDS: INSULIN LISPRO (NovoLOG) PER UNIT SC SCH ×2 (17:58→21:00)
[2023-11-09 20:17] LABS: HEMOGLOBIN A1c 5.8 % (4.0-6.0)
[2023-11-09 20:28] LABS: ALBUMIN 1.8 G/DL (3.2-5.2); BILIRUBIN,TOTAL 1.7 MG/DL (0.3-1.2); CALCIUM LEVEL 7.8 MG/DL (8.3-10.6); CREATININE FOR GFR 1.57 MG/DL (0.70-1.30); GLOMERULAR FILTRATION RATE 45.4 (>35); POTASSIUM SERUM 3.8 MMOL/L (3.5-5.1); TOTAL PROTEIN 5.5 G/DL (5.7-8.2)
[2023-11-09] MEDS: NS 220 ML IV ONE (21:00)
[2023-11-09] MEDS: HEPARIN SOD (PORCINE) 5000UNITS/ML 1ML VIAL/SYRINGE SC SCH (22:25)
[2023-11-09] MEDS: MEROPENEM INJ 1 GM in IV 1 EA IV SCH (22:26)
[2023-11-09] MEDS: NS 1,000 ML IV SCH (22:26)
[2023-11-09 23:00] VITALS: O2SAT 95
[2023-11-09 23:10] VITALS: BP 154/93; TEMP 97.6; O2SAT 97
[2023-11-10] VITALS (8 sets, daily range): BP systolic 115–147; BP diastolic 48–61; TEMP 96.5–97.4; O2SAT 93–99
[2023-11-10 05:38] LABS: CHOLESTEROL RISK RATIO 3.77 (<5); HDL CHOLESTEROL 28.1 MG/DL (>40); LDL CHOLESTEROL 66.5 MG/DL (<100); NON-HDL-C 77.9 MG/DL
[2023-11-10 07:54] LABS: BASO % 0.2 % (0.0-1.0); HEMATOCRIT 33.6 % (42.0-52.0); HEMOGLOBIN 10.7 g/dl (13.5-17.5); LYMPH # 0.6 10^3/uL (1.5-5.0); LYMPH % 6.3 % (24.0-44.0); MEAN CORPUSCULAR HEMOGLOBIN 31.1 pg (27.0-33.0); MEAN CORPUSCULAR HGB CONC 31.8 g/dl (32.0-36.5); MEAN CORPUSCULAR VOLUME 97.7 fl (80.0-96.0); MONO # 0.3 10^3/uL (0.0-0.8); MONO % 2.9 % (2.0-8.0); NEUTROPHILS # 8.4 10^3/uL (1.5-8.5); NEUTROPHILS % 89.1 % (36.0-66.0); PLATELET COUNT, AUTOMATED 124 10^3/uL (150-450); RED BLOOD COUNT 3.44 10^6/uL (4.30-6.10); WHITE BLOOD COUNT 9.4 10^3/uL (4.0-10.0)
[2023-11-10 07:55] LABS: ALBUMIN 1.9 G/DL (3.2-5.2); BILIRUBIN,TOTAL 1.5 MG/DL (0.3-1.2); CALCIUM LEVEL 8.2 MG/DL (8.3-10.6); CREATININE FOR GFR 1.32 MG/DL (0.70-1.30); GLOMERULAR FILTRATION RATE 55.4 (>35); MAGNESIUM LEVEL 1.7 MG/DL (1.8-2.4); POTASSIUM SERUM 3.9 MMOL/L (3.5-5.1); TOTAL PROTEIN 5.7 G/DL (5.7-8.2)
[2023-11-10] MEDS: MAG SULF 1GM/100ML (MAG RUN) 1 GM in IV 1 EA IV SCH (10:05)
[2023-11-10] MEDS: OMEPRAZOLE 20MG CAP PO SCH (11:23)
[2023-11-10] MEDS: CARVedilol 12.5 MG TAB PO SCH (11:24)
[2023-11-10] MEDS: ATORVASTATIN 20 MG TAB PO SCH (20:41)
[2023-11-11 00:54] VITALS: BP 152/60; TEMP 97.2; O2SAT 96
[2023-11-11 05:04] VITALS: BP 149/59; TEMP 97.9; O2SAT 95
[2023-11-11 06:59] LABS: BASO % 0.2 % (0.0-1.0); HEMATOCRIT 33.4 % (42.0-52.0); HEMOGLOBIN 10.9 g/dl (13.5-17.5); LYMPH # 0.4 10^3/uL (1.5-5.0); LYMPH % 5.6 % (24.0-44.0); MEAN CORPUSCULAR HEMOGLOBIN 31.2 pg (27.0-33.0); MEAN CORPUSCULAR HGB CONC 32.6 g/dl (32.0-36.5); MEAN CORPUSCULAR VOLUME 95.7 fl (80.0-96.0); MONO # 0.3 10^3/uL (0.0-0.8); MONO % 4.7 % (2.0-8.0); NEUTROPHILS # 5.7 10^3/uL (1.5-8.5); NEUTROPHILS % 88.7 % (36.0-66.0); PLATELET COUNT, AUTOMATED 132 10^3/uL (150-450); RED BLOOD COUNT 3.49 10^6/uL (4.30-6.10); WHITE BLOOD COUNT 6.4 10^3/uL (4.0-10.0)
[2023-11-11 07:04] LABS: ALBUMIN 1.9 G/DL (3.2-5.2); ALKALINE PHOSPHATASE 504 U/L (46-116); ALT/SGPT 91 U/L (7.0-40); AST/SGOT 53 U/L (<34); BILIRUBIN,DIRECT 0.8 MG/DL (<0.4); BLOOD UREA NITROGEN 28 MG/DL (9-23); CARBON DIOXIDE LEVEL 23 MMOL/L (20-31); CHLORIDE LEVEL 114 MMOL/L (98-107); CREATININE FOR GFR 1.23 MG/DL (0.70-1.30); GLOMERULAR FILTRATION RATE > 60.0 (>35); GLUCOSE, FASTING 106 MG/DL (74-106); POTASSIUM SERUM 3.8 MMOL/L (3.5-5.1); SODIUM LEVEL 137 MMOL/L (136-145); TOTAL PROTEIN 5.5 G/DL (5.7-8.2)
[2023-11-11 10:54] LABS: INR 1.22
[2023-11-11] MEDS ORDERED: PROHANCE 279.3MG/ML 15ML VIAL As Ordered ONE (13:47)
[2023-11-11 14:00] VITALS: BP 138/44; TEMP 98.4; O2SAT 95
[2023-11-11] MEDS: LORazepam 2 MG/ML 1ML VIAL IV STA (14:25)
[2023-11-11] MEDS: cefTRIAXone SOD 2 GM in D5W MINI-BAG PLUS 50 ML IV SCH (20:13)
[2023-11-11 20:19] VITALS: BP 142/55; TEMP 97.9; O2SAT 94
[2023-11-12 05:01] VITALS: BP 140/54; TEMP 98.1; O2SAT 95
[2023-11-12 08:07] LABS: HEMATOCRIT 34.7 % (42.0-52.0); HEMOGLOBIN 11.4 g/dl (13.5-17.5); LYMPH # 0.6 10^3/uL (1.5-5.0); LYMPH % 17.9 % (24.0-44.0); MEAN CORPUSCULAR HGB CONC 32.9 g/dl (32.0-36.5); MEAN CORPUSCULAR VOLUME 94.3 fl (80.0-96.0); MONO # 0.3 10^3/uL (0.0-0.8); MONO % 9.9 % (2.0-8.0); NEUTROPHILS # 2.4 10^3/uL (1.5-8.5); NEUTROPHILS % 71.3 % (36.0-66.0); PLATELET COUNT, AUTOMATED 118 10^3/uL (150-450); RED BLOOD COUNT 3.68 10^6/uL (4.30-6.10); WHITE BLOOD COUNT 3.4 10^3/uL (4.0-10.0)
[2023-11-12 08:43] LABS: ALBUMIN 1.7 G/DL (3.2-5.2); ALKALINE PHOSPHATASE 503 U/L (46-116); ALT/SGPT 95 U/L (7.0-40); AST/SGOT 77 U/L (<34); BLOOD UREA NITROGEN 19 MG/DL (9-23); CALCIUM LEVEL 7.8 MG/DL (8.3-10.6); CARBON DIOXIDE LEVEL 24 MMOL/L (20-31); CHLORIDE LEVEL 111 MMOL/L (98-107); CREATININE FOR GFR 1.23 MG/DL (0.70-1.30); GLOMERULAR FILTRATION RATE > 60.0 (>35); GLUCOSE, FASTING 91 MG/DL (74-106); POTASSIUM SERUM 3.8 MMOL/L (3.5-5.1); SODIUM LEVEL 140 MMOL/L (136-145); TOTAL PROTEIN 5.2 G/DL (5.7-8.2)
[2023-11-12] MEDS: ACETAMINOPHEN TAB 650MG DOSE (2X325MG) PO ONE (11:58)
[2023-11-12 14:00] VITALS: BP 101/50; TEMP 97.5; O2SAT 96
[2023-11-12 16:02] VITALS: BP 128/50
[2023-11-12 20:00] VITALS: BP 182/84; TEMP 97.7; O2SAT 90
[2023-11-12 21:48] VITALS: BP 166/85
[2023-11-13 06:00] VITALS: BP 133/65; TEMP 97.9; O2SAT 92
[2023-11-13 06:10] LABS: BASO % 0.3 % (0.0-1.0); EOS % 0.7 % (0.0-3.0); HEMATOCRIT 35.2 % (42.0-52.0); HEMOGLOBIN 11.5 g/dl (13.5-17.5); LYMPH % 34.3 % (24.0-44.0); MEAN CORPUSCULAR HEMOGLOBIN 31.1 pg (27.0-33.0); MEAN CORPUSCULAR HGB CONC 32.7 g/dl (32.0-36.5); MEAN CORPUSCULAR VOLUME 95.1 fl (80.0-96.0); MONO # 0.3 10^3/uL (0.0-0.8); MONO % 10.5 % (2.0-8.0); NEUTROPHILS # 1.5 10^3/uL (1.5-8.5); NEUTROPHILS % 53.2 % (36.0-66.0); PLATELET COUNT, AUTOMATED 124 10^3/uL (150-450); WHITE BLOOD COUNT 2.9 10^3/uL (4.0-10.0)
[2023-11-13 06:19] LABS: BLOOD UREA NITROGEN 19 MG/DL (9-23); CALCIUM LEVEL 7.7 MG/DL (8.3-10.6); CARBON DIOXIDE LEVEL 25 MMOL/L (20-31); CHLORIDE LEVEL 111 MMOL/L (98-107); GLOMERULAR FILTRATION RATE 56.4 (>35); GLUCOSE, FASTING 113 MG/DL (74-106); POTASSIUM SERUM 3.9 MMOL/L (3.5-5.1); SODIUM LEVEL 142 MMOL/L (136-145)
[2023-11-13] MEDS ORDERED: CALCIUM CARBONATE 500 MG CHEW U/D PO PRN (07:50)
[2023-11-13] MEDS: IPRATROPIUM 0.5MG/ALBUTEROL 2.5MG INH SOL UD 3ML (DUONEB) NEB PRN (09:56)
[2023-11-13] MEDS: PERCOCET 5MG/325MG TAB PO PRN (11:49)
[2023-11-13 14:00] VITALS: BP 107/45; TEMP 97.5; O2SAT 95
[2023-11-13] MEDS: NS 1,000 ML IV SCH (14:47)
[2023-11-13] MEDS: predniSONE 20 MG TAB PO SCH (14:51)
[2023-11-13] MEDS ORDERED: ISOVUE-370 76% 100ML VIAL As Ordered ONE (15:42)
[2023-11-13 16:06] LABS: IRON (FE) 28 UG/DL (65-175); PERCENT SATURATION 14.5 % (19.7-50.0); TOTAL IRON BINDING CAPACITY 193 UG/DL (250-425)
[2023-11-13 16:09] LABS: FERRITIN 409.8 NG/ML (10.5-307.3); FOLATE > 24.00 NG/ML (>5.4); VITAMIN B12 LEVEL 760 PG/ML (211-911)
[2023-11-13] MEDS: IPRATROPIUM 0.5MG/ALBUTEROL 2.5MG INH SOL UD 3ML (DUONEB) NEB SCH (19:30)
[2023-11-13 20:00] VITALS: BP 153/68; TEMP 97.5; O2SAT 98
[2023-11-14 05:00] VITALS: BP 140/58; TEMP 97.3; O2SAT 97
[2023-11-14 06:15] LABS: HEMATOCRIT 32.6 % (42.0-52.0); HEMOGLOBIN 10.8 g/dl (13.5-17.5); LYMPH # 0.8 10^3/uL (1.5-5.0); LYMPH % 36.5 % (24.0-44.0); MEAN CORPUSCULAR HEMOGLOBIN 31.2 pg (27.0-33.0); MEAN CORPUSCULAR HGB CONC 33.1 g/dl (32.0-36.5); MEAN CORPUSCULAR VOLUME 94.2 fl (80.0-96.0); MONO # 0.2 10^3/uL (0.0-0.8); MONO % 7.7 % (2.0-8.0); NEUTROPHILS # 1.2 10^3/uL (1.5-8.5); NEUTROPHILS % 54.9 % (36.0-66.0); PLATELET COUNT, AUTOMATED 110 10^3/uL (150-450); RED BLOOD COUNT 3.46 10^6/uL (4.30-6.10); WHITE BLOOD COUNT 2.2 10^3/uL (4.0-10.0)
[2023-11-14 06:29] LABS: BLOOD UREA NITROGEN 19 MG/DL (9-23); CALCIUM LEVEL 7.5 MG/DL (8.3-10.6); CARBON DIOXIDE LEVEL 23 MMOL/L (20-31); CHLORIDE LEVEL 109 MMOL/L (98-107); CREATININE FOR GFR 1.09 MG/DL (0.70-1.30); GLOMERULAR FILTRATION RATE > 60.0 (>35); GLUCOSE, FASTING 161 MG/DL (74-106); POTASSIUM SERUM 4.1 MMOL/L (3.5-5.1); SODIUM LEVEL 138 MMOL/L (136-145)
[2023-11-14 14:00] VITALS: BP 153/56; TEMP 97.7; O2SAT 95
[2023-11-14 20:10] VITALS: BP 153/57; TEMP 97.9; O2SAT 96
[2023-11-15 05:02] VITALS: BP 166/80; TEMP 97.5; O2SAT 97
[2023-11-15 05:53] LABS: BASO % 0.3 % (0.0-1.0); EOS % 0.3 % (0.0-3.0); HEMATOCRIT 31.6 % (42.0-52.0); HEMOGLOBIN 10.5 g/dl (13.5-17.5); LYMPH # 1.3 10^3/uL (1.5-5.0); LYMPH % 36.4 % (24.0-44.0); MEAN CORPUSCULAR HEMOGLOBIN 30.8 pg (27.0-33.0); MEAN CORPUSCULAR HGB CONC 33.2 g/dl (32.0-36.5); MEAN CORPUSCULAR VOLUME 92.7 fl (80.0-96.0); MONO # 0.4 10^3/uL (0.0-0.8); MONO % 9.8 % (2.0-8.0); NEUTROPHILS # 1.9 10^3/uL (1.5-8.5); NEUTROPHILS % 52.1 % (36.0-66.0); PLATELET COUNT, AUTOMATED 129 10^3/uL (150-450); RED BLOOD COUNT 3.41 10^6/uL (4.30-6.10); WHITE BLOOD COUNT 3.6 10^3/uL (4.0-10.0)
[2023-11-15 06:15] LABS: ALBUMIN 1.8 G/DL (3.2-5.2); ALKALINE PHOSPHATASE 546 U/L (46-116); ALT/SGPT 122 U/L (7.0-40); AST/SGOT 81 U/L (<34); BILIRUBIN,DIRECT 0.6 MG/DL (<0.4); BILIRUBIN,TOTAL 0.8 MG/DL (0.3-1.2); BLOOD UREA NITROGEN 20 MG/DL (9-23); CALCIUM LEVEL 7.7 MG/DL (8.3-10.6); CARBON DIOXIDE LEVEL 24 MMOL/L (20-31); CHLORIDE LEVEL 108 MMOL/L (98-107); CREATININE FOR GFR 1.15 MG/DL (0.70-1.30); GLOMERULAR FILTRATION RATE > 60.0 (>35); GLUCOSE, FASTING 118 MG/DL (74-106); POTASSIUM SERUM 4.2 MMOL/L (3.5-5.1); SODIUM LEVEL 137 MMOL/L (136-145); TOTAL PROTEIN 5.3 G/DL (5.7-8.2)
[2023-11-15 06:20] VITALS: BP 160/62
[2023-11-15 11:15] VITALS: BP 140/56
[2023-11-15 14:00] VITALS: BP 143/57; TEMP 97.5; O2SAT 98
[2023-11-15 19:37] VITALS: BP 155/67; TEMP 97.7; O2SAT 97
[2023-11-16] VITALS (9 sets, daily range): BP systolic 118–156; BP diastolic 46–67; TEMP 97.1–97.5; O2SAT 94–97
[2023-11-16 06:02] LABS: EOS % 0.5 % (0.0-3.0); HEMATOCRIT 32.9 % (42.0-52.0); HEMOGLOBIN 10.7 g/dl (13.5-17.5); LYMPH # 1.6 10^3/uL (1.5-5.0); LYMPH % 41.1 % (24.0-44.0); MEAN CORPUSCULAR HEMOGLOBIN 30.5 pg (27.0-33.0); MEAN CORPUSCULAR HGB CONC 32.5 g/dl (32.0-36.5); MEAN CORPUSCULAR VOLUME 93.7 fl (80.0-96.0); MONO # 0.5 10^3/uL (0.0-0.8); NEUTROPHILS # 1.7 10^3/uL (1.5-8.5); NEUTROPHILS % 44.6 % (36.0-66.0); PLATELET COUNT, AUTOMATED 143 10^3/uL (150-450); RED BLOOD COUNT 3.51 10^6/uL (4.30-6.10); WHITE BLOOD COUNT 3.8 10^3/uL (4.0-10.0)
[2023-11-16 06:31] LABS: BLOOD UREA NITROGEN 19 MG/DL (9-23); CALCIUM LEVEL 7.9 MG/DL (8.3-10.6); CARBON DIOXIDE LEVEL 27 MMOL/L (20-31); CHLORIDE LEVEL 108 MMOL/L (98-107); CREATININE FOR GFR 1.19 MG/DL (0.70-1.30); GLOMERULAR FILTRATION RATE > 60.0 (>35); GLUCOSE, FASTING 118 MG/DL (74-106); MAGNESIUM LEVEL 1.9 MG/DL (1.8-2.4); POTASSIUM SERUM 4.3 MMOL/L (3.5-5.1); SODIUM LEVEL 140 MMOL/L (136-145)
[2023-11-16 08:51] LABS: ALBUMIN 2.1 G/DL (3.2-5.2); ALKALINE PHOSPHATASE 561 U/L (46-116); ALT/SGPT 171 U/L (7.0-40); AST/SGOT 107 U/L (<34); BILIRUBIN,DIRECT 0.6 MG/DL (<0.4); BILIRUBIN,TOTAL 0.8 MG/DL (0.3-1.2); TOTAL PROTEIN 5.6 G/DL (5.7-8.2)
[2023-11-16] MEDS ORDERED: fentaNYL 100 MCG/2 ML INJECTION As Ordered ONE (16:27)
[2023-11-16] MEDS ORDERED: ROCURONIUM BROMIDE 50MG/5ML VIAL As Ordered ONE (16:28)
[2023-11-16] MEDS ORDERED: propofoL 200 MG/20 ML VIAL As Ordered ONE (16:28)
[2023-11-16] MEDS ORDERED: LIDOCAINE 2% 100MG/5ML SDV (FOR ANES.) As Ordered ONE (16:28)
[2023-11-16] MEDS ORDERED: SUGAMMADEX SODIUM 500 MG/5 ML VIAL (BRIDION) As Ordered ONE (16:31)
[2023-11-16] MEDS: ALBUTEROL SULFATE 2.5MG/0.5ML INH NEB SOLN NEB ONE (16:44)
[2023-11-16] MEDS ORDERED: ESMOLOL INJ 100MG/10ML VIAL As Ordered ONE (16:59)
[2023-11-16] MEDS ORDERED: ONDANSETRON 4MG 2ML VIAL IV PRN (18:00)
[2023-11-16] MEDS ORDERED: HYDROMORPHONE HCL 0.5 MG/ 0.5 ML SYRINGE IV PRN (18:00)
[2023-11-16] MEDS ORDERED: oxyCODONE 5MG TAB PO PRN (18:00)
[2023-11-16] MEDS ORDERED: fentaNYL 100 MCG/2 ML INJECTION IV PRN (18:00)
[2023-11-16] MEDS ORDERED: hydrALAZINE 20MG/ML 1ML VIAL As Ordered ONE (18:04)
[2023-11-16] MEDS: LR 1,000 ML IV SCH (18:54)
[2023-11-16] MEDS: NS 1,000 ML IV SCH (21:59)
[2023-11-17 04:04] VITALS: BP 146/58; TEMP 97.3; O2SAT 95
[2023-11-17 06:25] LABS: BASO % 0.3 % (0.0-1.0); EOS # 0.3 10^3/uL (0.0-0.5); EOS % 7.2 % (0.0-3.0); HEMATOCRIT 32.9 % (42.0-52.0); HEMOGLOBIN 10.7 g/dl (13.5-17.5); LYMPH # 1.3 10^3/uL (1.5-5.0); LYMPH % 36.4 % (24.0-44.0); MEAN CORPUSCULAR HEMOGLOBIN 31.1 pg (27.0-33.0); MEAN CORPUSCULAR HGB CONC 32.5 g/dl (32.0-36.5); MEAN CORPUSCULAR VOLUME 95.6 fl (80.0-96.0); MONO # 0.4 10^3/uL (0.0-0.8); NEUTROPHILS # 1.6 10^3/uL (1.5-8.5); NEUTROPHILS % 43.7 % (36.0-66.0); PLATELET COUNT, AUTOMATED 155 10^3/uL (150-450); RED BLOOD COUNT 3.44 10^6/uL (4.30-6.10); WHITE BLOOD COUNT 3.6 10^3/uL (4.0-10.0)
[2023-11-17 06:53] LABS: ALBUMIN 1.8 G/DL (3.2-5.2); ALKALINE PHOSPHATASE 535 U/L (46-116); ALT/SGPT 192 U/L (7.0-40); AST/SGOT 118 U/L (<34); BILIRUBIN,DIRECT 0.7 MG/DL (<0.4); BILIRUBIN,TOTAL 0.9 MG/DL (0.3-1.2); BLOOD UREA NITROGEN 15 MG/DL (9-23); CALCIUM LEVEL 7.6 MG/DL (8.3-10.6); CARBON DIOXIDE LEVEL 27 MMOL/L (20-31); CHLORIDE LEVEL 109 MMOL/L (98-107); CREATININE FOR GFR 1.01 MG/DL (0.70-1.30); GLOMERULAR FILTRATION RATE > 60.0 (>35); GLUCOSE, FASTING 85 MG/DL (74-106); MAGNESIUM LEVEL 1.8 MG/DL (1.8-2.4); SODIUM LEVEL 142 MMOL/L (136-145); TOTAL PROTEIN 5.2 G/DL (5.7-8.2)
[2023-11-17 10:00] VITALS: BP 143/57; TEMP 97.7; O2SAT 95
[2023-11-17] MEDS ORDERED: URSO300C3 PO (10:58)
[2023-11-17] MEDS ORDERED: ALBU8.5H INH (10:58)
[2023-11-17] MEDS: ursodioL 300MG CAP PO SCH (12:42)
[2023-11-17 14:00] VITALS: BP 144/58; TEMP 97.5; O2SAT 96
[2023-11-17] MEDS: metroNIDAZOLE (FLAGYL) 500MG TABLET PO SCH (17:28)
[2023-11-17 20:07] VITALS: BP 145/58; TEMP 97.9; O2SAT 100
[2023-11-17] MEDS: CEFDINIR 300 MG CAP (OMNICEF) PO SCH (21:10)
[2023-11-18 05:21] VITALS: BP 144/77; TEMP 97.9; O2SAT 98
[2023-11-18 06:06] LABS: EOS % 0.5 % (0.0-3.0); HEMATOCRIT 30.3 % (42.0-52.0); LYMPH # 1.1 10^3/uL (1.5-5.0); LYMPH % 28.1 % (24.0-44.0); MEAN CORPUSCULAR HEMOGLOBIN 30.9 pg (27.0-33.0); MEAN CORPUSCULAR VOLUME 93.5 fl (80.0-96.0); MONO # 0.4 10^3/uL (0.0-0.8); MONO % 10.1 % (2.0-8.0); NEUTROPHILS # 2.4 10^3/uL (1.5-8.5); NEUTROPHILS % 59.8 % (36.0-66.0); PLATELET COUNT, AUTOMATED 145 10^3/uL (150-450); RED BLOOD COUNT 3.24 10^6/uL (4.30-6.10); WHITE BLOOD COUNT 4.1 10^3/uL (4.0-10.0)
[2023-11-18 06:31] LABS: ALKALINE PHOSPHATASE 535 U/L (46-116); ALT/SGPT 192 U/L (7.0-40); AST/SGOT 98 U/L (<34); BILIRUBIN,DIRECT 0.7 MG/DL (<0.4); BILIRUBIN,TOTAL 0.9 MG/DL (0.3-1.2); BLOOD UREA NITROGEN 15 MG/DL (9-23); CALCIUM LEVEL 7.7 MG/DL (8.3-10.6); CARBON DIOXIDE LEVEL 25 MMOL/L (20-31); CHLORIDE LEVEL 108 MMOL/L (98-107); CREATININE FOR GFR 1.14 MG/DL (0.70-1.30); GLOMERULAR FILTRATION RATE > 60.0 (>35); GLUCOSE, FASTING 125 MG/DL (74-106); MAGNESIUM LEVEL 1.9 MG/DL (1.8-2.4); POTASSIUM SERUM 3.9 MMOL/L (3.5-5.1); SODIUM LEVEL 138 MMOL/L (136-145); TOTAL PROTEIN 5.4 G/DL (5.7-8.2)
[2023-11-18] MEDS ORDERED: RISATAB3 PO (09:21)
[2023-11-18] MEDS: predniSONE 10MG TAB PO SCH (10:02)
[2023-11-18] MEDS: LACTOBACILLUS ACIDOPHILUS CAP (BACID) PO SCH (13:25)
[2023-11-18 14:00] VITALS: BP 149/69; TEMP 97.7; O2SAT 94
[2023-11-18 20:05] VITALS: BP 147/61; TEMP 97.9; O2SAT 94
[2023-11-19 05:15] VITALS: BP 139/48; TEMP 98.1; O2SAT 91
[2023-11-19 06:36] LABS: BASO % 0.2 % (0.0-1.0); EOS % 0.2 % (0.0-3.0); HEMATOCRIT 32.3 % (42.0-52.0); HEMOGLOBIN 10.5 g/dl (13.5-17.5); LYMPH # 1.1 10^3/uL (1.5-5.0); LYMPH % 26.1 % (24.0-44.0); MEAN CORPUSCULAR HEMOGLOBIN 30.8 pg (27.0-33.0); MEAN CORPUSCULAR HGB CONC 32.5 g/dl (32.0-36.5); MEAN CORPUSCULAR VOLUME 94.7 fl (80.0-96.0); MONO # 0.3 10^3/uL (0.0-0.8); MONO % 7.8 % (2.0-8.0); NEUTROPHILS # 2.6 10^3/uL (1.5-8.5); NEUTROPHILS % 64.5 % (36.0-66.0); PLATELET COUNT, AUTOMATED 156 10^3/uL (150-450); RED BLOOD COUNT 3.41 10^6/uL (4.30-6.10); WHITE BLOOD COUNT 4.1 10^3/uL (4.0-10.0)
[2023-11-19 07:01] LABS: BILIRUBIN,DIRECT 0.6 MG/DL (<0.4); BILIRUBIN,TOTAL 0.9 MG/DL (0.3-1.2); CALCIUM LEVEL 7.8 MG/DL (8.3-10.6); CREATININE FOR GFR 1.44 MG/DL (0.70-1.30); GLOMERULAR FILTRATION RATE 50.1 (>35); POTASSIUM SERUM 4.4 MMOL/L (3.5-5.1); TOTAL PROTEIN 5.5 G/DL (5.7-8.2)
[2023-11-19] MEDS ORDERED: MIRALAX *UNIT DOSE* 17GM PACKET PO PRN (08:40)
[2023-11-19] MEDS ORDERED: ACETAMINOPHEN TAB 650MG DOSE (2X325MG) PO PRN (08:40)
[2023-11-19] MEDS ORDERED: SENOKOT S TAB PO PRN (08:40)
[2023-11-19] MEDS: NS 1,000 ML IV SCH (09:05)
[2023-11-19 14:00] VITALS: BP 157/62; TEMP 97.3; O2SAT 96
[2023-11-19 15:36] LABS: CALCIUM LEVEL 7.7 MG/DL (8.3-10.6); CREATININE FOR GFR 1.25 MG/DL (0.70-1.30)
[2023-11-19 20:22] VITALS: BP 156/64
[2023-11-19 22:00] VITALS: BP 156/64; TEMP 97.9; O2SAT 96
[2023-11-20 06:00] VITALS: BP 129/59; TEMP 97.7; O2SAT 96
[2023-11-20] MEDS ORDERED: PRED10TA2 PO (07:43)
[2023-11-20] MEDS ORDERED: MIRA33506 PO (07:43)
[2023-11-20] MEDS ORDERED: SENN-52 PO (07:43)
[2023-11-20] MEDS ORDERED: LASI20TA3 PO (11:17)
[2023-11-20 14:00] VITALS: BP 135/56; TEMP 97.5; O2SAT 94
== END 2023-11-20 15:47 | DRG 393 ==
LOC: M ED 10:53 → M ED INP 19:26 → M PCU 23:21 → M MSPAV 11-11 00:53
PROVIDERS: ADMIT Internal Medicine; ATTEND Internal Medicine
PROC: B246ZZZ Ultrasonography of Right and Left Heart (ICD-10-PCS; principal; 2023-11-10)
PROC: 0F798DZ Dilation of Common Bile Duct with Intraluminal Device, Via Natural or Artificial Opening Endoscopic (ICD-10-PCS; 2023-11-16)
PROC: 0FB98ZX Excision of Common Bile Duct, Via Natural or Artificial Opening Endoscopic, Diagnostic (ICD-10-PCS; 2023-11-16)
DX: K91.89 Other postprocedural complications and disorders of digestive system (principal); G93.41 Metabolic encephalopathy; K83.1 Obstruction of bile duct; N39.0 Urinary tract infection, site not specified; N17.9 Acute kidney failure, unspecified; I50.32 Chronic diastolic (congestive) heart failure; I13.0 Hypertensive heart and chronic kidney disease with heart failure and stage 1 through stage 4 chronic kidney disease, or unspecified chronic kidney disease; R78.81 Bacteremia; D61.818 Other pancytopenia; J44.9 Chronic obstructive pulmonary disease, unspecified; N18.30 Chronic kidney disease, stage 3 unspecified; K21.9 Gastro-esophageal reflux disease without esophagitis; G47.33 Obstructive sleep apnea (adult) (pediatric); E11.22 Type 2 diabetes mellitus with diabetic chronic kidney disease; E78.5 Hyperlipidemia, unspecified; Z90.49 Acquired absence of other specified parts of digestive tract; Z87.891 Personal history of nicotine dependence; N47.1 Phimosis; R74.01 Elevation of levels of liver transaminase levels; Z66 Do not resuscitate; M17.12 Unilateral primary osteoarthritis, left knee; B96.20 Unspecified Escherichia coli [E. coli] as the cause of diseases classified elsewhere; B96.4 Proteus (mirabilis) (morganii) as the cause of diseases classified elsewhere; B95.1 Streptococcus, group B, as the cause of diseases classified elsewhere; K76.0 Fatty (change of) liver, not elsewhere classified; I49.5 Sick sinus syndrome; K74.60 Unspecified cirrhosis of liver; D46.9 Myelodysplastic syndrome, unspecified; R33.8 Other retention of urine; J45.909 Unspecified asthma, uncomplicated; R93.2 Abnormal findings on diagnostic imaging of liver and biliary tract; K83.8 Other specified diseases of biliary tract; R54 Age-related physical debility; N13.9 Obstructive and reflux uropathy, unspecified; I95.9 Hypotension, unspecified; D69.6 Thrombocytopenia, unspecified; Z79.4 Long term (current) use of insulin; Z79.899 Other long term (current) drug therapy; Z79.82 Long term (current) use of aspirin; Y83.8 Other surgical procedures as the cause of abnormal reaction of the patient, or of later complication, without mention of misadventure at the time of the procedure